=== PATIENT | female | born 1955 | race Caucasian/White ===

== ENCOUNTER 2018-04-30 18:36 | Inpatient (IN) | payer BC ==
[2018-04-30 20:24] LABS: ADD MAN DIFF? NO
[2018-04-30] MEDS: ONDANSETRON 4 MG INJ IV (20:25)
[2018-04-30] MEDS: SOD CHLORIDE 0.9% 500 ML IV (20:34)
[2018-04-30 20:41] LABS: INR 1.52; PROTIME 18.6 Sec (11.9-14.9); PT RATIO 1.5
[2018-04-30 20:44] LABS: ALANINE AMINOTRANSFERASE 66 IU/L (13-69); ALBUMIN 2.9 g/dl (3.3-4.9); ALBUMIN/GLOBULIN RATIO 0.51; ALKALINE PHOSPHATASE 315 IU/L (42-121); ANION GAP 15 (8-16); ASPARTATE AMINO TRANSFERASE 217 IU/L (15-46); BILIRUBIN,INDIRECT 2.7 mg/dl (0-1.1); BLOOD UREA NITROGEN 16 mg/dl (7-20); CALCIUM 8.4 mg/dl (8.4-10.2); CARBON DIOXIDE 25 mmol/L (21-31); CHLORIDE 97 mmol/L (97-110); CREATININE 1.29 mg/dl (0.44-1.00); GLUCOSE 113 mg/dl (70-220); LIPASE 94 U/L (23-300); POTASSIUM 3.5 mmol/L (3.5-5.1); SODIUM 133 mmol/L (135-144); TOTAL PROTEIN 8.5 g/dl (6.1-8.1)
[2018-04-30 20:52] LABS: ADD UMIC YES; UR ASCORBIC ACID NEGATIVE (NEGATIVE); UR BACTERIA MANY /HPF (NONE SEEN); UR BILIRUBIN (Dip) 2+ mg/dL (NEGATIVE); UR BLOOD (Dip) 1+ mg/dL (NEGATIVE); UR CLARITY CLOUDY (CLEAR); UR COLOR AMBER (YELLOW); UR GLUCOSE (Dip) 1+ mg/dL (NEGATIVE); UR KETONES (Dip) NEGATIVE (NEGATIVE); UR LEUKOCYTE ESTERASE (Dip) NEGATIVE Leu/ul (NEGATIVE); UR MUCUS FEW /HPF (NONE SEEN); UR NITRITE (Dip) NEGATIVE (NEGATIVE); UR RBC 2 /HPF (0-5); UR SPECIFIC GRAVITY (Dip) 1.014 (1.003-1.030); UR SQUAMOUS EPITHELIAL CELL MANY /HPF (FEW); UR TOTAL PROTEIN (Dip) NEGATIVE (NEGATIVE); UR UROBILINOGEN (Dip) 2+ mg/dL (NEGATIVE); UR WBC 2 /HPF (0-5)
[2018-04-30 21:07] LABS: BASOPHIL # 0.1 10^3/ul (0.0-0.1); BASOPHILS % 0.6 % (0.0-2.0); EOSINOPHILS # 0.1 10^3/ul (0.0-0.5); EOSINOPHILS % 0.9 % (0.0-7.0); HEMATOCRIT 32.9 % (37.0-47.0); HEMOGLOBIN 12.2 g/dl (12.0-16.0); LYMPHOCYTES # 1.7 10^3/ul (0.8-2.9); LYMPHOCYTES % 11.5 % (15.0-51.0); MEAN CORPUSCULAR HEMOGLOBIN 35.1 pg (29.0-33.0); MEAN CORPUSCULAR HGB CONC 37.1 g/dl (32.0-37.0); MEAN CORPUSCULAR VOLUME 94.5 fl (82.0-101.0); MEAN PLATELET VOLUME 9.3 fl (7.4-10.4); MONOCYTE # 1.2 10^3/ul (0.3-0.9); MONOCYTES % 7.7 % (0.0-11.0); NEUTROPHIL # 11.6 10^3/ul (1.6-7.5); NEUTROPHILS % 77.5 % (39.0-77.0); NUCLEATED RED BLOOD CELLS # 0.1 10^3/ul (0.0-0.0); NUCLEATED RED BLOOD CELLS% 0.5 /100WBC (0.0-0.0); PLATELET COUNT 178 10^3/UL (140-415); RED BLOOD COUNT 3.48 10^6/ul (4.20-5.40); RED CELL DISTRIBUTION WIDTH 21.2 % (11.5-14.5)
[2018-04-30 21:09] LABS: UR NONSQUAMOUS EPITHELIAL CELL 1 /HPF (NONE SEEN)
[2018-04-30] MEDS ORDERED: NACL 0.9% 3 ML SYG IV (22:30)
[2018-04-30] MEDS ORDERED: ACETAMINOPHEN 325 MG TAB PO ×2 (22:30)
[2018-04-30] MEDS ORDERED: ONDANSETRON 4 MG INJ IV (22:30)
[2018-04-30] MEDS: metroNIDAZOLE 500 MG/NS (PMX) 100 ML IVPB (22:41)
[2018-04-30] MEDS: CEFTRIAXONE 1 GM INJ IM (22:41)
[2018-04-30 23:20] LABS: HAAIG REFLEX REFLEX FILED
[2018-04-30 23:22] LABS: RETICULOCYTE COUNT # 0.164 X10^6 (0.020-0.110); RETICULOCYTE COUNT % 5.3 % (0.5-1.5)
[2018-04-30 23:44] LABS: LACTATE DEHYDROGENASE 546 IU/L (313-618)
[2018-04-30 23:54] LABS: ETHANOL < 10.0 mg/dl
[2018-05-01] MEDS: ALBUMIN HUMAN 25% 100 ML IV ×3 (00:09→07:14)
[2018-05-01 00:15] LABS: HEPATITIS B SURFACE ANTIGEN NEGATIVE (NEGATIVE)
[2018-05-01 00:33] LABS: HEPATITIS B SURFACE ANTIBODY NEGATIVE (NEGATIVE)
[2018-05-01 00:33] LABS: HEPATITIS B CORE ANTIBODY NEGATIVE (NEGATIVE); HEPATITIS C VIRAL ANTIBODY NEGATIVE (NEGATIVE)
[2018-05-01 00:58] LABS: LACTIC ACID 2.6 mmol/L (0.5-2.0)
[2018-05-01] MEDS: FUROSEMIDE 40 MG INJ IV (03:00)
[2018-05-01 03:07] LABS: LACTIC ACID 1.4 mmol/L (0.5-2.0)
[2018-05-01 05:58] LABS: ADD MAN DIFF? NO
[2018-05-01 06:31] LABS: LACTIC ACID 1.4 mmol/L (0.5-2.0)
[2018-05-01 06:47] LABS: ALANINE AMINOTRANSFERASE 60 IU/L (13-69); ALBUMIN 2.5 g/dl (3.3-4.9); ALBUMIN/GLOBULIN RATIO 0.54; ALKALINE PHOSPHATASE 226 IU/L (42-121); ANION GAP 15 (8-16); ASPARTATE AMINO TRANSFERASE 153 IU/L (15-46); BILIRUBIN,INDIRECT 3.4 mg/dl (0-1.1); BILIRUBIN,TOTAL 16.1 mg/dl (0.2-1.3); BLOOD UREA NITROGEN 18 mg/dl (7-20); CALCIUM 8.3 mg/dl (8.4-10.2); CARBON DIOXIDE 25 mmol/L (21-31); CHLORIDE 99 mmol/L (97-110); CREATININE 1.26 mg/dl (0.44-1.00); GLUCOSE 76 mg/dl (70-220); HDL CHOLESTEROL 7 mg/dl (35-98); MAGNESIUM 1.8 mg/dl (1.7-2.5); POTASSIUM 3.4 mmol/L (3.5-5.1); SODIUM 136 mmol/L (135-144); TOTAL PROTEIN 7.1 g/dl (6.1-8.1); TRIGLYCERIDES 107 mg/dl (0-149)
[2018-05-01 07:09] LABS: CHOLESTEROL < 50 mg/dl (100-200)
[2018-05-01 07:23] LABS: CARCINOEMBRYONIC ANTIGEN 7.3 ng/ml (0.0-5.0)
[2018-05-01] MEDS: PANTOPRAZOLE 40 MG INJ IV ×2 (07:30→18:51)
[2018-05-01] MEDS: PIPER-TAZO 2.25 GM (PMX) 50 ML IVPB ×4 (07:43→23:51)
[2018-05-01 08:28] LABS: WHITE BLOOD COUNT 11.9 10^3/ul (4.8-10.8)
[2018-05-01 08:28] LABS: ABNORMAL IP MESSAGE 1; BASOPHIL # 0.1 10^3/ul (0.0-0.1); BASOPHILS % 0.6 % (0.0-2.0); EOSINOPHILS # 0.2 10^3/ul (0.0-0.5); EOSINOPHILS % 1.8 % (0.0-7.0); HEMATOCRIT 26.1 % (37.0-47.0); HEMOGLOBIN 9.6 g/dl (12.0-16.0); LYMPHOCYTES # 1.6 10^3/ul (0.8-2.9); LYMPHOCYTES % 13.6 % (15.0-51.0); MEAN CORPUSCULAR HEMOGLOBIN 34.8 pg (29.0-33.0); MEAN CORPUSCULAR HGB CONC 36.8 g/dl (32.0-37.0); MEAN CORPUSCULAR VOLUME 94.6 fl (82.0-101.0); MEAN PLATELET VOLUME 9.6 fl (7.4-10.4); MONOCYTE # 0.9 10^3/ul (0.3-0.9); MONOCYTES % 7.5 % (0.0-11.0); NEUTROPHILS % 75.5 % (39.0-77.0); NUCLEATED RED BLOOD CELLS% 0.3 /100WBC (0.0-0.0); RED BLOOD COUNT 2.76 10^6/ul (4.20-5.40); RED CELL DISTRIBUTION WIDTH 20.9 % (11.5-14.5)
[2018-05-01 08:30] LABS: PLATELET COUNT 130 10^3/UL (140-415); POSITIVE DIFF @See below
[2018-05-01 08:47] LABS: ALPHA FETOPROTEIN 3.27 IU/L (0.00-7.21)
[2018-05-01] MEDS: HYDROmorphONE 2 MG TAB PO ×4 (09:51→23:57)
[2018-05-01] MEDS: predniSOLONE (3 MG/ML) CUP PO (09:54)
[2018-05-01 17:13] LABS: LACTIC ACID 2.7 mmol/L (0.5-2.0)
[2018-05-01 18:16] LABS: AMPHETAMINE/METHAMPHETAMINE NEGATIVE (NEGATIVE)
[2018-05-01 18:17] LABS: BARBITURATES NEGATIVE (NEGATIVE); BENZODIAZEPINES NEGATIVE (NEGATIVE); CANNABINOIDS NEGATIVE (NEGATIVE); COCAINE NEGATIVE (NEGATIVE); OPIATES NEGATIVE (NEGATIVE)
[2018-05-01] MEDS: ONDANSETRON 4 MG INJ IV ×2 (18:51→23:56)
[2018-05-01 21:49] LABS: LACTIC ACID 2.2 mmol/L (0.5-2.0)
[2018-05-02] MEDS: PANTOPRAZOLE 40 MG INJ IV ×2 (05:50→17:51)
[2018-05-02 06:03] LABS: PROTIME 21.3 Sec (11.9-14.9); PT RATIO 1.7
[2018-05-02 06:13] LABS: LACTIC ACID 1.7 mmol/L (0.5-2.0)
[2018-05-02 06:21] LABS: ALANINE AMINOTRANSFERASE 51 IU/L (13-69); ALBUMIN 3.2 g/dl (3.3-4.9); ALBUMIN/GLOBULIN RATIO 0.72; ALKALINE PHOSPHATASE 198 IU/L (42-121); ANION GAP 16 (8-16); ASPARTATE AMINO TRANSFERASE 132 IU/L (15-46); BILIRUBIN,INDIRECT 3.4 mg/dl (0-1.1); BILIRUBIN,TOTAL 18.7 mg/dl (0.2-1.3); BLOOD UREA NITROGEN 20 mg/dl (7-20); CALCIUM 8.7 mg/dl (8.4-10.2); CARBON DIOXIDE 23 mmol/L (21-31); CHLORIDE 100 mmol/L (97-110); GLUCOSE 131 mg/dl (70-220); POTASSIUM 3.7 mmol/L (3.5-5.1); SODIUM 135 mmol/L (135-144); TOTAL PROTEIN 7.6 g/dl (6.1-8.1)
[2018-05-02] MEDS: PIPER-TAZO 2.25 GM (PMX) 50 ML IVPB ×3 (06:26→17:55)
[2018-05-02] MEDS: predniSOLONE (3 MG/ML) CUP PO (08:25)
[2018-05-02] MEDS: ONDANSETRON 4 MG INJ IV (08:25)
[2018-05-02] MEDS: HYDROmorphONE 2 MG TAB PO ×2 (10:50→22:35)
[2018-05-02] MEDS: LIDOCAINE 1% (MPF) 5 ML VIAL (15:33)
[2018-05-02 16:08] LABS: FLD PMN% 21.6 %; FLD RBC 2000 /uL; FLD WBC 283 /cmm
[2018-05-02 16:29] LABS: FLUID AMYLASE < 30 U/L; FLUID GLUCOSE 129 mg/dl; FLUID TOTAL PROTEIN 2.1 g/dl; FLUID TYPE PARACENTESIS FLUID
[2018-05-02 16:30] LABS: FLUID LD 171 U/L; FLUID TYPE PARACENTESIS FLUID
[2018-05-02 17:06] LABS: FLD CLARITY HAZY; FLD COLOR YELLOW
[2018-05-02 17:06] LABS: FLD TYPE PARACENTHESIS
[2018-05-02 17:07] LABS: FLD MN% 78.4 %
[2018-05-02 17:51] LABS: ALPHA 1 ANTITRYPSIN 157 mg/dL (83-199); HAPTOGLOBIN 69 mg/dL (43-212)
[2018-05-03 05:39] LABS: ADD MAN DIFF? NO
[2018-05-03] MEDS: PIPER-TAZO 2.25 GM (PMX) 50 ML IVPB ×4 (05:48→17:24)
[2018-05-03] MEDS: PANTOPRAZOLE 40 MG INJ IV ×2 (05:48→17:24)
[2018-05-03 05:50] LABS: BASOPHILS % 0.1 % (0.0-2.0); HEMATOCRIT 25.6 % (37.0-47.0); HEMOGLOBIN 9.2 g/dl (12.0-16.0); LYMPHOCYTES # 1.2 10^3/ul (0.8-2.9); LYMPHOCYTES % 7.2 % (15.0-51.0); MEAN CORPUSCULAR HEMOGLOBIN 34.7 pg (29.0-33.0); MEAN CORPUSCULAR HGB CONC 35.9 g/dl (32.0-37.0); MEAN CORPUSCULAR VOLUME 96.6 fl (82.0-101.0); MEAN PLATELET VOLUME 9.2 fl (7.4-10.4); MONOCYTES % 5.7 % (0.0-11.0); NEUTROPHIL # 14.6 10^3/ul (1.6-7.5); NEUTROPHILS % 86.3 % (39.0-77.0); NUCLEATED RED BLOOD CELLS # 0.1 10^3/ul (0.0-0.0); NUCLEATED RED BLOOD CELLS% 0.4 /100WBC (0.0-0.0); PLATELET COUNT 138 10^3/UL (140-415); RED BLOOD COUNT 2.65 10^6/ul (4.20-5.40); RED CELL DISTRIBUTION WIDTH 19.9 % (11.5-14.5)
[2018-05-03 05:50] LABS: WHITE BLOOD COUNT 16.9 10^3/ul (4.8-10.8)
[2018-05-03 06:03] LABS: ALANINE AMINOTRANSFERASE 52 IU/L (13-69); ALBUMIN/GLOBULIN RATIO 0.66; ALKALINE PHOSPHATASE 183 IU/L (42-121); ANION GAP 14 (8-16); ASPARTATE AMINO TRANSFERASE 123 IU/L (15-46); BILIRUBIN,INDIRECT 3.2 mg/dl (0-1.1); BILIRUBIN,TOTAL 15.4 mg/dl (0.2-1.3); BLOOD UREA NITROGEN 22 mg/dl (7-20); CALCIUM 8.9 mg/dl (8.4-10.2); CARBON DIOXIDE 25 mmol/L (21-31); CHLORIDE 99 mmol/L (97-110); CREATININE 1.73 mg/dl (0.44-1.00); GLUCOSE 118 mg/dl (70-220); POTASSIUM 3.6 mmol/L (3.5-5.1); SODIUM 134 mmol/L (135-144); TOTAL PROTEIN 7.5 g/dl (6.1-8.1)
[2018-05-03 06:08] LABS: PROTIME 21.3 Sec (11.9-14.9); PT RATIO 1.7
[2018-05-03 06:09] LABS: MAGNESIUM 2.1 mg/dl (1.7-2.5)
[2018-05-03] MEDS: predniSOLONE (3 MG/ML) CUP PO (08:22)
[2018-05-03] MEDS: HYDROmorphONE 2 MG TAB PO ×3 (08:22→21:59)
[2018-05-03] MEDS ORDERED: INFLUENZA VIRUS VACCINE 0.5 ML (DISPENSING) IM* (09:00)
[2018-05-03 12:00] LABS: TYPE AND SCREEN 1 1
[2018-05-03 13:54] LABS: ADD UMIC NO; UR ASCORBIC ACID NEGATIVE (NEGATIVE); UR BILIRUBIN (Dip) 2+ mg/dL (NEGATIVE); UR BLOOD (Dip) NEGATIVE (NEGATIVE); UR CLARITY SLIGHTLY CLOUDY (CLEAR); UR COLOR AMBER (YELLOW); UR GLUCOSE (Dip) NEGATIVE (NEGATIVE); UR KETONES (Dip) NEGATIVE (NEGATIVE); UR LEUKOCYTE ESTERASE (Dip) NEGATIVE Leu/ul (NEGATIVE); UR NITRITE (Dip) NEGATIVE (NEGATIVE); UR RBC 0 /HPF (0-5); UR SPECIFIC GRAVITY (Dip) 1.017 (1.003-1.030); UR SQUAMOUS EPITHELIAL CELL FEW /HPF (FEW); UR TOTAL PROTEIN (Dip) NEGATIVE (NEGATIVE); UR UROBILINOGEN (Dip) 2+ mg/dL (NEGATIVE); UR WBC 3 /HPF (0-5)
[2018-05-03] MEDS: PROPOFOL 20 ML (15:39)
[2018-05-03 16:26] LABS: SODIUM,URINE RANDOM < 13 mmol/L (30-90)
[2018-05-03] MEDS: ALBUMIN HUMAN 25% 100 ML IV ×4 (18:08→22:39)
[2018-05-03] MEDS: AMIODARONE 200 MG TAB PO (20:23)
[2018-05-03] MEDS ORDERED: METOPROLOL 5 MG INJ IV (21:00)
[2018-05-03] MEDS: METOPROLOL 25 MG TAB PO (21:00)
[2018-05-03] MEDS ORDERED: DIGOXIN 500 MCG INJ IV (21:00)
[2018-05-03] MEDS: DOCUSATE SODIUM 100 MG CAP PO (21:59)
[2018-05-04] MEDS: PIPER-TAZO 2.25 GM (PMX) 50 ML IVPB ×4 (00:30→17:43)
[2018-05-04] MEDS: ALBUMIN HUMAN 25% 100 ML IV (01:30)
[2018-05-04] MEDS: PANTOPRAZOLE 40 MG INJ IV ×2 (05:15→17:43)
[2018-05-04 05:43] LABS: ADD MAN DIFF? NO
[2018-05-04 05:48] LABS: BASOPHILS % 0.1 % (0.0-2.0); HEMATOCRIT 21.5 % (37.0-47.0); HEMOGLOBIN 7.6 g/dl (12.0-16.0); LYMPHOCYTES # 1.2 10^3/ul (0.8-2.9); LYMPHOCYTES % 8.2 % (15.0-51.0); MEAN CORPUSCULAR HEMOGLOBIN 34.7 pg (29.0-33.0); MEAN CORPUSCULAR HGB CONC 35.3 g/dl (32.0-37.0); MEAN CORPUSCULAR VOLUME 98.2 fl (82.0-101.0); MEAN PLATELET VOLUME 9.5 fl (7.4-10.4); MONOCYTE # 0.9 10^3/ul (0.3-0.9); MONOCYTES % 6.2 % (0.0-11.0); NEUTROPHIL # 12.6 10^3/ul (1.6-7.5); NEUTROPHILS % 84.6 % (39.0-77.0); NUCLEATED RED BLOOD CELLS # 0.1 10^3/ul (0.0-0.0); NUCLEATED RED BLOOD CELLS% 0.4 /100WBC (0.0-0.0); PLATELET COUNT 121 10^3/UL (140-415); RED BLOOD COUNT 2.19 10^6/ul (4.20-5.40); RED CELL DISTRIBUTION WIDTH 19.9 % (11.5-14.5)
[2018-05-04 05:48] LABS: WHITE BLOOD COUNT 14.9 10^3/ul (4.8-10.8)
[2018-05-04 06:08] LABS: PHOSPHORUS 3.3 mg/dl (2.5-4.9)
[2018-05-04 06:08] LABS: MAGNESIUM 2.1 mg/dl (1.7-2.5)
[2018-05-04 06:13] LABS: ALANINE AMINOTRANSFERASE 42 IU/L (13-69); ALBUMIN 4.3 g/dl (3.3-4.9); ALBUMIN/GLOBULIN RATIO 1.04; ALKALINE PHOSPHATASE 126 IU/L (42-121); ANION GAP 19 (8-16); ASPARTATE AMINO TRANSFERASE 96 IU/L (15-46); BILIRUBIN,INDIRECT 4.5 mg/dl (0-1.1); BILIRUBIN,TOTAL 12.2 mg/dl (0.2-1.3); BLOOD UREA NITROGEN 24 mg/dl (7-20); CALCIUM 9.4 mg/dl (8.4-10.2); CARBON DIOXIDE 24 mmol/L (21-31); CHLORIDE 96 mmol/L (97-110); CREATININE 1.57 mg/dl (0.44-1.00); GLUCOSE 105 mg/dl (70-220); INR 1.54; POTASSIUM 3.1 mmol/L (3.5-5.1); PROTIME 18.8 Sec (11.9-14.9); PT RATIO 1.5; SODIUM 136 mmol/L (135-144); TOTAL PROTEIN 8.4 g/dl (6.1-8.1)
[2018-05-04] MEDS: HYDROmorphONE 2 MG TAB PO ×3 (06:44→16:55)
[2018-05-04] MEDS: POTASSIUM CHLORIDE (SR) 20 MEQ TAB PO (07:03)
[2018-05-04] MEDS: predniSOLONE (3 MG/ML) CUP PO (09:31)
[2018-05-04] MEDS: ASPIRIN 81 MG TAB PO (09:31)
[2018-05-04] MEDS: METOPROLOL 25 MG TAB PO ×2 (09:33→21:29)
[2018-05-04] MEDS: AMIODARONE 200 MG TAB PO ×3 (09:35→21:28)
[2018-05-04] MEDS ORDERED: POTASSIUM CHLORIDE 20 MEQ POWDER FOR ORAL SOLN PO (10:30)
[2018-05-04 10:48] LABS: IRON 128 ug/dl (35-150)
[2018-05-04 10:57] LABS: % IRON SATURATION 71 % SAT (22-52); TOTAL IRON BINDING CAPACITY 181 ug/dl (241-421)
[2018-05-04 13:02] LABS: ANA SCREEN NEGATIVE (NEGATIVE); MITOCHONDRIAL TB NEGATIVE (NEGATIVE); SMOOTH MUSCLE AB SCREEN NEGATIVE (NEGATIVE)
[2018-05-04] MEDS: ONDANSETRON 4 MG INJ IV (13:19)
[2018-05-04] MEDS: SUCRALFATE (100 MG/ML) 10ML CUP PO ×2 (16:54→21:28)
[2018-05-04] MEDS: METOCLOPRAMIDE 10 MG TAB PO ×2 (16:57→21:29)
[2018-05-04 17:37] LABS: CREATININE, RANDOM URINE 90 mg/dL (20-275); MICROALBUMIN 0.5 mg/dL; MICROALBUMIN/CREATININE RATIO 6 (<30)
[2018-05-04] MEDS: BISACODYL (EC) 5 MG TAB PO (21:32)
[2018-05-05] MEDS: PIPER-TAZO 2.25 GM (PMX) 50 ML IVPB ×5 (00:20→23:02)
[2018-05-05] MEDS: METOCLOPRAMIDE 10 MG TAB PO ×3 (05:00→21:02)
[2018-05-05] MEDS: PANTOPRAZOLE 40 MG INJ IV ×2 (05:00→17:29)
[2018-05-05] MEDS: DOCUSATE SODIUM 100 MG CAP PO (05:01)
[2018-05-05 06:11] LABS: ADD MAN DIFF? NO
[2018-05-05 06:16] LABS: WHITE BLOOD COUNT 14.5 10^3/ul (4.8-10.8)
[2018-05-05 06:17] LABS: BASOPHILS % 0.1 % (0.0-2.0); HEMOGLOBIN 7.8 g/dl (12.0-16.0); LYMPHOCYTES # 0.9 10^3/ul (0.8-2.9); LYMPHOCYTES % 6.2 % (15.0-51.0); MEAN CORPUSCULAR HEMOGLOBIN 35.3 pg (29.0-33.0); MEAN CORPUSCULAR HGB CONC 35.5 g/dl (32.0-37.0); MEAN CORPUSCULAR VOLUME 99.5 fl (82.0-101.0); MEAN PLATELET VOLUME 9.3 fl (7.4-10.4); MONOCYTE # 0.8 10^3/ul (0.3-0.9); MONOCYTES % 5.7 % (0.0-11.0); NEUTROPHIL # 12.6 10^3/ul (1.6-7.5); NEUTROPHILS % 87.2 % (39.0-77.0); NUCLEATED RED BLOOD CELLS # 0.1 10^3/ul (0.0-0.0); NUCLEATED RED BLOOD CELLS% 0.3 /100WBC (0.0-0.0); PLATELET COUNT 114 10^3/UL (140-415); RED BLOOD COUNT 2.21 10^6/ul (4.20-5.40); RED CELL DISTRIBUTION WIDTH 19.7 % (11.5-14.5)
[2018-05-05] MEDS: SUCRALFATE (100 MG/ML) 10ML CUP PO ×4 (06:22→20:51)
[2018-05-05 06:25] LABS: INR 1.73; PROTIME 20.6 Sec (11.9-14.9); PT RATIO 1.6
[2018-05-05 06:34] LABS: ALANINE AMINOTRANSFERASE 57 IU/L (13-69); ALBUMIN 3.4 g/dl (3.3-4.9); ALKALINE PHOSPHATASE 129 IU/L (42-121); ANION GAP 19 (8-16); ASPARTATE AMINO TRANSFERASE 105 IU/L (15-46); BILIRUBIN,INDIRECT 4.3 mg/dl (0-1.1); BILIRUBIN,TOTAL 11.8 mg/dl (0.2-1.3); BLOOD UREA NITROGEN 25 mg/dl (7-20); CALCIUM 9.7 mg/dl (8.4-10.2); CARBON DIOXIDE 26 mmol/L (21-31); CHLORIDE 94 mmol/L (97-110); CREATININE 1.59 mg/dl (0.44-1.00); GLUCOSE 120 mg/dl (70-220); POTASSIUM 4.1 mmol/L (3.5-5.1); SODIUM 135 mmol/L (135-144); TOTAL PROTEIN 7.6 g/dl (6.1-8.1)
[2018-05-05 06:49] LABS: PHOSPHORUS 2.6 mg/dl (2.5-4.9)
[2018-05-05] MEDS: ASPIRIN 81 MG TAB PO (09:05)
[2018-05-05] MEDS: HYDROmorphONE 2 MG TAB PO (09:05)
[2018-05-05] MEDS: METOPROLOL 25 MG TAB PO ×2 (09:06→20:54)
[2018-05-05] MEDS: AMIODARONE 200 MG TAB PO ×3 (09:06→20:53)
[2018-05-05] MEDS: predniSOLONE (3 MG/ML) CUP PO (09:07)
[2018-05-05] MEDS: CEFAZOLIN 2 GM/50 ML (PMX) 50 ML IVPB (15:30)
[2018-05-05] MEDS: LACTATED RINGER'S 1,000 ML IV ×2 (16:23→23:02)
[2018-05-06 05:39] LABS: ADD MAN DIFF? NO
[2018-05-06 05:40] LABS: BASOPHILS % 0.1 % (0.0-2.0); HEMATOCRIT 21.5 % (37.0-47.0); HEMOGLOBIN 7.9 g/dl (12.0-16.0); LYMPHOCYTES # 1.2 10^3/ul (0.8-2.9); LYMPHOCYTES % 7.9 % (15.0-51.0); MEAN CORPUSCULAR HEMOGLOBIN 35.3 pg (29.0-33.0); MEAN CORPUSCULAR HGB CONC 36.7 g/dl (32.0-37.0); MEAN PLATELET VOLUME 9.2 fl (7.4-10.4); MONOCYTE # 1.1 10^3/ul (0.3-0.9); MONOCYTES % 7.1 % (0.0-11.0); NEUTROPHIL # 12.7 10^3/ul (1.6-7.5); NEUTROPHILS % 84.2 % (39.0-77.0); NUCLEATED RED BLOOD CELLS # 0.1 10^3/ul (0.0-0.0); NUCLEATED RED BLOOD CELLS% 0.5 /100WBC (0.0-0.0); PLATELET COUNT 104 10^3/UL (140-415); RED BLOOD COUNT 2.24 10^6/ul (4.20-5.40); RED CELL DISTRIBUTION WIDTH 18.9 % (11.5-14.5)
[2018-05-06 05:40] LABS: WHITE BLOOD COUNT 15.1 10^3/ul (4.8-10.8)
[2018-05-06] MEDS: PIPER-TAZO 2.25 GM (PMX) 50 ML IVPB ×3 (05:55→18:09)
[2018-05-06] MEDS: METOCLOPRAMIDE 10 MG TAB PO ×3 (05:55→21:04)
[2018-05-06] MEDS: LACTATED RINGER'S 1,000 ML IV ×3 (05:56→22:15)
[2018-05-06 06:05] LABS: ALANINE AMINOTRANSFERASE 68 IU/L (13-69); ALBUMIN 3.1 g/dl (3.3-4.9); ALBUMIN/GLOBULIN RATIO 0.77; ALKALINE PHOSPHATASE 179 IU/L (42-121); ANION GAP 15 (8-16); ASPARTATE AMINO TRANSFERASE 102 IU/L (15-46); BILIRUBIN,INDIRECT 3.7 mg/dl (0-1.1); BILIRUBIN,TOTAL 9.7 mg/dl (0.2-1.3); BLOOD UREA NITROGEN 24 mg/dl (7-20); CALCIUM 9.6 mg/dl (8.4-10.2); CARBON DIOXIDE 26 mmol/L (21-31); CHLORIDE 97 mmol/L (97-110); GLUCOSE 117 mg/dl (70-220); POTASSIUM 3.4 mmol/L (3.5-5.1); SODIUM 135 mmol/L (135-144); TOTAL PROTEIN 7.1 g/dl (6.1-8.1)
[2018-05-06 06:08] LABS: MAGNESIUM 1.9 mg/dl (1.7-2.5)
[2018-05-06 06:08] LABS: PHOSPHORUS 1.7 mg/dl (2.5-4.9)
[2018-05-06 06:16] LABS: PROTIME 21.3 Sec (11.9-14.9); PT RATIO 1.7
[2018-05-06] MEDS: PANTOPRAZOLE 40 MG INJ IV ×2 (06:47→18:20)
[2018-05-06] MEDS: SUCRALFATE (100 MG/ML) 10ML CUP PO ×4 (06:50→20:57)
[2018-05-06] MEDS ORDERED: CEFAZOLIN 2 GM/50 ML (PMX) 50 ML IVPB (08:00)
[2018-05-06] MEDS: ASPIRIN 81 MG TAB PO (14:21)
[2018-05-06] MEDS: METOPROLOL 25 MG TAB PO ×2 (14:22→20:58)
[2018-05-06] MEDS: predniSOLONE (3 MG/ML) CUP PO (14:23)
[2018-05-06] MEDS: AMIODARONE 200 MG TAB PO ×3 (14:23→20:58)
[2018-05-06] MEDS: LACTULOSE 30ML CUP PO ×2 (18:09→21:03)
[2018-05-07] MEDS: PIPER-TAZO 2.25 GM (PMX) 50 ML IVPB ×4 (00:10→17:41)
[2018-05-07] MEDS: LACTATED RINGER'S 1,000 ML IV ×4 (00:11→22:06)
[2018-05-07 05:45] LABS: ADD MAN DIFF? NO
[2018-05-07 05:53] LABS: BASOPHILS % 0.1 % (0.0-2.0); HEMATOCRIT 20.8 % (37.0-47.0); HEMOGLOBIN 7.6 g/dl (12.0-16.0); LYMPHOCYTES # 0.8 10^3/ul (0.8-2.9); LYMPHOCYTES % 7.1 % (15.0-51.0); MEAN CORPUSCULAR HGB CONC 36.5 g/dl (32.0-37.0); MEAN CORPUSCULAR VOLUME 95.9 fl (82.0-101.0); MEAN PLATELET VOLUME 9.4 fl (7.4-10.4); MONOCYTE # 0.8 10^3/ul (0.3-0.9); MONOCYTES % 7.1 % (0.0-11.0); NEUTROPHIL # 9.4 10^3/ul (1.6-7.5); NEUTROPHILS % 85.1 % (39.0-77.0); NUCLEATED RED BLOOD CELLS # 0.1 10^3/ul (0.0-0.0); NUCLEATED RED BLOOD CELLS% 0.7 /100WBC (0.0-0.0); PLATELET COUNT 119 10^3/UL (140-415); RED BLOOD COUNT 2.17 10^6/ul (4.20-5.40); RED CELL DISTRIBUTION WIDTH 18.4 % (11.5-14.5)
[2018-05-07 05:53] LABS: WHITE BLOOD COUNT 11.1 10^3/ul (4.8-10.8)
[2018-05-07] MEDS: LACTULOSE 30ML CUP PO ×3 (06:02→20:21)
[2018-05-07] MEDS: PANTOPRAZOLE 40 MG INJ IV ×2 (06:02→17:38)
[2018-05-07] MEDS: SUCRALFATE (100 MG/ML) 10ML CUP PO ×4 (06:02→21:00)
[2018-05-07] MEDS: METOCLOPRAMIDE 10 MG TAB PO ×3 (06:02→20:22)
[2018-05-07 06:12] LABS: INR 1.85; PROTIME 21.8 Sec (11.9-14.9); PT RATIO 1.7
[2018-05-07 06:18] LABS: AMMONIA 38 umol/l (9-30)
[2018-05-07 06:22] LABS: PHOSPHORUS 1.3 mg/dl (2.5-4.9)
[2018-05-07 06:22] LABS: MAGNESIUM 1.7 mg/dl (1.7-2.5)
[2018-05-07 06:25] LABS: ALANINE AMINOTRANSFERASE 67 IU/L (13-69); ALBUMIN/GLOBULIN RATIO 0.88; ALKALINE PHOSPHATASE 121 IU/L (42-121); ANION GAP 11 (8-16); ASPARTATE AMINO TRANSFERASE 101 IU/L (15-46); BILIRUBIN,INDIRECT 3.5 mg/dl (0-1.1); BILIRUBIN,TOTAL 8.4 mg/dl (0.2-1.3); BLOOD UREA NITROGEN 21 mg/dl (7-20); CALCIUM 9.3 mg/dl (8.4-10.2); CARBON DIOXIDE 26 mmol/L (21-31); CHLORIDE 104 mmol/L (97-110); CREATININE 1.02 mg/dl (0.44-1.00); GLUCOSE 131 mg/dl (70-220); POTASSIUM 3.2 mmol/L (3.5-5.1); SODIUM 138 mmol/L (135-144); TOTAL PROTEIN 6.4 g/dl (6.1-8.1)
[2018-05-07] MEDS: POTASSIUM CHLORIDE (SR) 20 MEQ TAB PO (08:02)
[2018-05-07] MEDS ORDERED: POTASSIUM CHLORIDE (SR) 20 MEQ TAB PO (09:00)
[2018-05-07] MEDS: NEUTRA-PHOS 250 MG PACKET PO (09:19)
[2018-05-07] MEDS: ASPIRIN 81 MG TAB PO (09:20)
[2018-05-07] MEDS: METOPROLOL 25 MG TAB PO ×2 (09:21→20:22)
[2018-05-07] MEDS: AMIODARONE 200 MG TAB PO (09:21)
[2018-05-07] MEDS: predniSOLONE (3 MG/ML) CUP PO (09:29)
[2018-05-07] MEDS: HYDROmorphONE 2 MG TAB PO ×2 (09:41→20:24)
[2018-05-07] MEDS: MAGNESIUM SULFATE 1 GM/D5W 100 ML IVPB (09:49)
[2018-05-07 11:15] LABS: HEMATOCRIT 21.9 % (37.0-47.0); HEMOGLOBIN 8.3 g/dl (12.0-16.0)
[2018-05-07] MEDS: POTASSIUM PHOSPHATE 40 MEQ in SOD CHLORIDE 0.9% 250 ML IVPB (11:25)
[2018-05-08] MEDS: HYDROmorphONE 2 MG TAB PO (00:55)
[2018-05-08] MEDS: PIPER-TAZO 2.25 GM (PMX) 50 ML IVPB ×3 (00:55→11:25)
[2018-05-08] MEDS: PANTOPRAZOLE 40 MG INJ IV ×2 (05:22→17:43)
[2018-05-08] MEDS: LACTULOSE 30ML CUP PO ×2 (05:23→14:17)
[2018-05-08] MEDS: METOCLOPRAMIDE 10 MG TAB PO ×2 (05:23→14:17)
[2018-05-08 05:34] LABS: ADD MAN DIFF? NO
[2018-05-08 05:47] LABS: BASOPHILS % 0.1 % (0.0-2.0); EOSINOPHILS % 0.1 % (0.0-7.0); HEMATOCRIT 22.3 % (37.0-47.0); HEMOGLOBIN 8.1 g/dl (12.0-16.0); LYMPHOCYTES # 1.3 10^3/ul (0.8-2.9); LYMPHOCYTES % 6.7 % (15.0-51.0); MEAN CORPUSCULAR HEMOGLOBIN 35.1 pg (29.0-33.0); MEAN CORPUSCULAR HGB CONC 36.3 g/dl (32.0-37.0); MEAN CORPUSCULAR VOLUME 96.5 fl (82.0-101.0); MEAN PLATELET VOLUME 9.4 fl (7.4-10.4); MONOCYTE # 1.4 10^3/ul (0.3-0.9); MONOCYTES % 7.3 % (0.0-11.0); NEUTROPHIL # 16.2 10^3/ul (1.6-7.5); NEUTROPHILS % 84.4 % (39.0-77.0); NUCLEATED RED BLOOD CELLS # 0.2 10^3/ul (0.0-0.0); NUCLEATED RED BLOOD CELLS% 0.8 /100WBC (0.0-0.0); PLATELET COUNT 136 10^3/UL (140-415); RED BLOOD COUNT 2.31 10^6/ul (4.20-5.40); RED CELL DISTRIBUTION WIDTH 18.9 % (11.5-14.5)
[2018-05-08 05:47] LABS: WHITE BLOOD COUNT 19.2 10^3/ul (4.8-10.8)
[2018-05-08 05:59] LABS: INR 1.71; PROTIME 20.4 Sec (11.9-14.9); PT RATIO 1.6
[2018-05-08 06:01] LABS: PHOSPHORUS 2.6 mg/dl (2.5-4.9)
[2018-05-08 06:01] LABS: ALANINE AMINOTRANSFERASE 67 IU/L (13-69); ALBUMIN 3.1 g/dl (3.3-4.9); ALKALINE PHOSPHATASE 131 IU/L (42-121); ASPARTATE AMINO TRANSFERASE 95 IU/L (15-46); BILIRUBIN,INDIRECT 3.1 mg/dl (0-1.1); BILIRUBIN,TOTAL 7.6 mg/dl (0.2-1.3); MAGNESIUM 1.8 mg/dl (1.7-2.5); TOTAL PROTEIN 6.7 g/dl (6.1-8.1)
[2018-05-08 06:02] LABS: AMMONIA 25 umol/l (9-30)
[2018-05-08 06:07] LABS: ALANINE AMINOTRANSFERASE 76 IU/L (13-69); ALBUMIN 2.7 g/dl (3.3-4.9); ALBUMIN/GLOBULIN RATIO 0.71; ALKALINE PHOSPHATASE 133 IU/L (42-121); ANION GAP 14 (8-16); ASPARTATE AMINO TRANSFERASE 99 IU/L (15-46); BILIRUBIN,INDIRECT 3.4 mg/dl (0-1.1); BILIRUBIN,TOTAL 7.9 mg/dl (0.2-1.3); BLOOD UREA NITROGEN 18 mg/dl (7-20); CALCIUM 9.6 mg/dl (8.4-10.2); CARBON DIOXIDE 25 mmol/L (21-31); CHLORIDE 105 mmol/L (97-110); CREATININE 0.89 mg/dl (0.44-1.00); GLUCOSE 124 mg/dl (70-220); POTASSIUM 3.5 mmol/L (3.5-5.1); SODIUM 140 mmol/L (135-144); TOTAL PROTEIN 6.5 g/dl (6.1-8.1)
[2018-05-08] MEDS: SUCRALFATE (100 MG/ML) 10ML CUP PO ×3 (06:26→17:13)
[2018-05-08] MEDS: ASPIRIN 81 MG TAB PO (09:42)
[2018-05-08] MEDS: METOPROLOL 25 MG TAB PO (09:43)
[2018-05-08] MEDS: AMIODARONE 200 MG TAB PO (09:43)
[2018-05-08] MEDS: predniSOLONE (3 MG/ML) CUP PO (09:44)
== END 2018-05-08 18:10 | disposition home health service (06) | DRG 871 ==
LOC: 6WM 05-03 06:18 → E/R 18:36 → 6WM 05-01 15:16
PROC: 0W9G3ZX Drainage of Peritoneal Cavity, Percutaneous Approach, Diagnostic (ICD-10-PCS; principal; 2018-05-03 13:20)
PROC: 0DJ08ZZ Inspection of Upper Intestinal Tract, Via Natural or Artificial Opening Endoscopic (ICD-10-PCS; 2018-05-03 13:20)
PROC: 30233K1 Transfusion of Nonautologous Frozen Plasma into Peripheral Vein, Percutaneous Approach (ICD-10-PCS; 2018-05-03 13:20)
DX: A41.9 Sepsis, unspecified organism (principal); K72.00 Acute and subacute hepatic failure without coma; K80.10 Calculus of gallbladder with chronic cholecystitis without obstruction; E87.1 Hypo-osmolality and hyponatremia; D68.9 Coagulation defect, unspecified; N17.9 Acute kidney failure, unspecified; K76.6 Portal hypertension; G93.40 Encephalopathy, unspecified; K70.11 Alcoholic hepatitis with ascites; I10 Essential (primary) hypertension; K76.0 Fatty (change of) liver, not elsewhere classified; R65.20 Severe sepsis without septic shock; K29.70 Gastritis, unspecified, without bleeding; D64.9 Anemia, unspecified; I48.0 Paroxysmal atrial fibrillation; E87.6 Hypokalemia; I95.9 Hypotension, unspecified; F10.20 Alcohol dependence, uncomplicated; N85.9 Noninflammatory disorder of uterus, unspecified; E83.89 Other disorders of mineral metabolism; Z78.0 Asymptomatic menopausal state; E87.70 Fluid overload, unspecified; K70.31 Alcoholic cirrhosis of liver with ascites
CPT/HCPCS: 36415; 36430; 74176; 74181; 76705; 76830; 76856; 80053; 80061; 80076; 80307; 81001; 81003; 82042; 82043; 82103; 82105; 82140; 82150; 82378; 82728; 82945; 83010; 83036; 83540; 83605; 83615; 83690; 83735; 84100; 84155; 84157; 84300; 84443; 85014; 85018; 85025; 85045; 85610; 86038; 86255; 86304; 86376; 86704; 86706; 86709; 86803; 86850; 86900; 86901; 87040; 87070; 87086; 87102; 87116; 87338; 87340; 88104; 88305; 89051; 93005; 93306; 96374; 97110; 97116; 97162; 99291-25

== ENCOUNTER 2018-05-24 12:09 | Inpatient (IN) | payer BC ==
[2018-05-24 13:03] LABS: ADD MAN DIFF? NO
[2018-05-24 13:11] LABS: ABNORMAL IP MESSAGE 1; BASOPHILS % 0.1 % (0.0-2.0); EOSINOPHILS % 0.2 % (0.0-7.0); HEMATOCRIT 23.7 % (37.0-47.0); HEMOGLOBIN 8.5 g/dl (12.0-16.0); LYMPHOCYTES # 1.8 10^3/ul (0.8-2.9); LYMPHOCYTES % 11.8 % (15.0-51.0); MEAN CORPUSCULAR HEMOGLOBIN 35.7 pg (29.0-33.0); MEAN CORPUSCULAR HGB CONC 35.9 g/dl (32.0-37.0); MEAN CORPUSCULAR VOLUME 99.6 fl (82.0-101.0); MEAN PLATELET VOLUME 10.7 fl (7.4-10.4); MONOCYTE # 0.7 10^3/ul (0.3-0.9); MONOCYTES % 4.7 % (0.0-11.0); NEUTROPHIL # 12.8 10^3/ul (1.6-7.5); NEUTROPHILS % 82.5 % (39.0-77.0); PLATELET COUNT 70 10^3/UL (140-415); RED BLOOD COUNT 2.38 10^6/ul (4.20-5.40); RED CELL DISTRIBUTION WIDTH 19.9 % (11.5-14.5)
[2018-05-24 13:11] LABS: WHITE BLOOD COUNT 15.5 10^3/ul (4.8-10.8)
[2018-05-24 13:12] LABS: POSITIVE DIFF @See below
[2018-05-24 13:18] LABS: ADD UMIC YES; UR ASCORBIC ACID NEGATIVE (NEGATIVE); UR BACTERIA MANY /HPF (NONE SEEN); UR BILIRUBIN (Dip) 2+ mg/dL (NEGATIVE); UR BLOOD (Dip) 3+ mg/dL (NEGATIVE); UR CLARITY CLOUDY (CLEAR); UR COLOR AMBER (YELLOW); UR GLUCOSE (Dip) NEGATIVE (NEGATIVE); UR KETONES (Dip) NEGATIVE (NEGATIVE); UR LEUKOCYTE ESTERASE (Dip) 2+ Leu/ul (NEGATIVE); UR MUCUS FEW /HPF (NONE SEEN); UR NITRITE (Dip) NEGATIVE (NEGATIVE); UR RBC 0 /HPF (0-5); UR SPECIFIC GRAVITY (Dip) 1.012 (1.003-1.030); UR SQUAMOUS EPITHELIAL CELL FEW /HPF (FEW); UR TOTAL PROTEIN (Dip) NEGATIVE (NEGATIVE); UR UROBILINOGEN (Dip) 2+ mg/dL (NEGATIVE); UR WBC 78 /HPF (0-5)
[2018-05-24 13:30] LABS: ALANINE AMINOTRANSFERASE 71 IU/L (13-69); ALBUMIN 2.6 g/dl (3.3-4.9); ALBUMIN/GLOBULIN RATIO 0.76; ALKALINE PHOSPHATASE 210 IU/L (42-121); ANION GAP 13 (5-13); ASPARTATE AMINO TRANSFERASE 73 IU/L (15-46); BILIRUBIN,INDIRECT 3.5 mg/dl (0-1.1); BILIRUBIN,TOTAL 10.3 mg/dl (0.2-1.3); BLOOD UREA NITROGEN 22 mg/dl (7-20); CALCIUM 7.9 mg/dl (8.4-10.2); CARBON DIOXIDE 20 mmol/L (21-31); CHLORIDE 105 mmol/L (97-110); CREATININE 0.86 mg/dl (0.44-1.00); Estimated GFR > 60 mL/min (>60); GLUCOSE 133 mg/dl (70-220); LIPASE 256 U/L (23-300); SODIUM 138 mmol/L (135-144)
[2018-05-24 13:33] LABS: POTASSIUM 2.9 mmol/L (3.5-5.1)
[2018-05-24] MEDS: ONDANSETRON 4 MG INJ IV (13:47)
[2018-05-24] MEDS: SOD CHLORIDE 0.9% 1,000 ML IV (13:48)
[2018-05-24] MEDS: morphine 4 MG/ML VIAL IV (13:48)
[2018-05-24] MEDS: CEFTRIAXONE 1 GM/50 ML (PMX) 50 ML IVPB (13:50)
[2018-05-24] MEDS: POTASSIUM CHLORIDE 50 ML IVPB ×3 (14:14→17:11)
[2018-05-24] MEDS: LIDOCAINE 1% (MPF) 5 ML VIAL (15:59)
[2018-05-24] MEDS ORDERED: NACL 0.9% 3 ML SYG IV (16:00)
[2018-05-24] MEDS ORDERED: ONDANSETRON 4 MG INJ IV (16:00)
[2018-05-24] MEDS ORDERED: DOCUSATE SODIUM 100 MG CAP PO (16:00)
[2018-05-24 16:37] LABS: FLD MN% 27.8 %; FLD PMN% 72.2 %; FLD RBC 1000 /uL; FLD WBC 5554 /cmm
[2018-05-24 16:49] LABS: INR 2.04; PROTIME 23.5 Sec (11.9-14.9); PT RATIO 1.8
[2018-05-24 16:54] LABS: FLD CLARITY CLOUDY; FLD COLOR YELLOW
[2018-05-24 16:54] LABS: FLD TYPE ASCITES
[2018-05-24] MEDS: SUCRALFATE (100 MG/ML) 10ML CUP PO ×2 (17:30→22:23)
[2018-05-24] MEDS: PANTOPRAZOLE (EC) 40 MG TAB PO (18:53)
[2018-05-24] MEDS: POTASSIUM CHLORIDE (SR) 20 MEQ TAB PO (18:53)
[2018-05-24] MEDS: METOCLOPRAMIDE 10 MG TAB PO (22:23)
[2018-05-24] MEDS: METOPROLOL 25 MG TAB PO (22:24)
[2018-05-24] MEDS: LACTULOSE 30ML CUP PO (22:24)
[2018-05-24] MEDS: morphine 2 MG INJ IV (22:27)
[2018-05-25 05:44] LABS: ADD MAN DIFF? NO
[2018-05-25] MEDS: PANTOPRAZOLE (EC) 40 MG TAB PO ×2 (06:53→17:05)
[2018-05-25] MEDS: METOCLOPRAMIDE 10 MG TAB PO ×3 (06:53→21:30)
[2018-05-25] MEDS: LACTULOSE 30ML CUP PO ×3 (06:53→21:30)
[2018-05-25 07:15] LABS: ABNORMAL IP MESSAGE 1; BASOPHILS % 0.2 % (0.0-2.0); EOSINOPHILS # 0.2 10^3/ul (0.0-0.5); EOSINOPHILS % 1.9 % (0.0-7.0); HEMATOCRIT 23.6 % (37.0-47.0); HEMOGLOBIN 8.4 g/dl (12.0-16.0); LYMPHOCYTES % 16.3 % (15.0-51.0); MEAN CORPUSCULAR HEMOGLOBIN 36.4 pg (29.0-33.0); MEAN CORPUSCULAR HGB CONC 35.6 g/dl (32.0-37.0); MEAN CORPUSCULAR VOLUME 102.2 fl (82.0-101.0); MEAN PLATELET VOLUME 10.9 fl (7.4-10.4); MONOCYTE # 0.6 10^3/ul (0.3-0.9); MONOCYTES % 5.2 % (0.0-11.0); NEUTROPHIL # 9.4 10^3/ul (1.6-7.5); NEUTROPHILS % 75.8 % (39.0-77.0); PLATELET COUNT 59 10^3/UL (140-415); RED BLOOD COUNT 2.31 10^6/ul (4.20-5.40); RED CELL DISTRIBUTION WIDTH 20.1 % (11.5-14.5)
[2018-05-25 07:15] LABS: WHITE BLOOD COUNT 12.4 10^3/ul (4.8-10.8)
[2018-05-25 07:20] LABS: POSITIVE DIFF @See below
[2018-05-25 07:41] LABS: ANION GAP 9 (5-13); BLOOD UREA NITROGEN 23 mg/dl (7-20); CALCIUM 8.2 mg/dl (8.4-10.2); CARBON DIOXIDE 22 mmol/L (21-31); CHLORIDE 108 mmol/L (97-110); CREATININE 0.91 mg/dl (0.44-1.00); Estimated GFR > 60 mL/min (>60); GLUCOSE 90 mg/dl (70-220); MAGNESIUM 1.3 mg/dl (1.7-2.5); PHOSPHORUS 3.1 mg/dl (2.5-4.9); POTASSIUM 3.3 mmol/L (3.5-5.1); SODIUM 139 mmol/L (135-144)
[2018-05-25] MEDS: SUCRALFATE (100 MG/ML) 10ML CUP PO ×4 (08:27→21:30)
[2018-05-25] MEDS: AMIODARONE 200 MG TAB PO (09:00)
[2018-05-25] MEDS: predniSOLONE (3 MG/ML PO SYG) PO ×2 (09:00→14:59)
[2018-05-25] MEDS: METOPROLOL 25 MG TAB PO ×2 (09:00→21:31)
[2018-05-25 09:04] LABS: ANISOCYTOSIS 3+ (0-0); BAND NEUTROPHILS #M 3.3 10^3/ul (0.0-0.6); BAND NEUTROPHILS % (M) 27 % (0-4); BURR CELLS 1+ (0-0); LYMPHOCYTES #M 0.7 10^3/ul (0.8-2.9); LYMPHOCYTES % (M) 6 % (15-51); MONOCYTE #M 0.3 10^3/ul (0.3-0.9); MONOCYTES % (M) 3 % (0-11); PLATELET ESTIMATE SIG DECREASED; POIKILOCYTOSIS 3+ (0-0); POLYCHROMASIA 1+ (0-0); SCHISTOCYTES 1+ (0-0); SEG NEUT #M 8.3 10^3/ul (1.6-7.5); SEGMENTED NEUTROPHILS (M) % 64 % (39-77); SMUDGE%M 23 % (0-0); TARGET CELLS 1+ (0-0)
[2018-05-25] MEDS: ASPIRIN 81 MG TAB PO (09:06)
[2018-05-25] MEDS ORDERED: VANCOMYCIN IV PER PHARMACY XX (09:30)
[2018-05-25] MEDS: POTASSIUM CHLORIDE (SR) 20 MEQ TAB PO (10:04)
[2018-05-25] MEDS: VANCOMYCIN 1.5 GM in SOD CHLORIDE 0.9% 250 ML IVPB (11:15)
[2018-05-25] MEDS: MAGNESIUM SULFATE 4 GM/100 ML 100 ML IVPB (12:37)
[2018-05-25] MEDS: CEFTRIAXONE 1 GM/50 ML (PMX) 50 ML IVPB (14:55)
[2018-05-25] MEDS: SPIRONOLACTONE 50 MG TAB PO (18:28)
[2018-05-25] MEDS: morphine 2 MG INJ IV (20:01)
[2018-05-25] MEDS: VANCOMYCIN 750 MG in SOD CHLORIDE 0.9% 150 ML IVPB (23:32)
[2018-05-26] MEDS: morphine 2 MG INJ IV ×3 (00:07→19:41)
[2018-05-26 05:14] LABS: ADD MAN DIFF? NO
[2018-05-26 05:23] LABS: WHITE BLOOD COUNT 8.6 10^3/ul (4.8-10.8)
[2018-05-26 05:23] LABS: ABNORMAL IP MESSAGE 1; HEMATOCRIT 22.4 % (37.0-47.0); HEMOGLOBIN 8.1 g/dl (12.0-16.0); LYMPHOCYTES # 1.2 10^3/ul (0.8-2.9); LYMPHOCYTES % 13.6 % (15.0-51.0); MEAN CORPUSCULAR HEMOGLOBIN 36.3 pg (29.0-33.0); MEAN CORPUSCULAR HGB CONC 36.2 g/dl (32.0-37.0); MEAN CORPUSCULAR VOLUME 100.4 fl (82.0-101.0); MEAN PLATELET VOLUME 11.2 fl (7.4-10.4); MONOCYTE # 0.3 10^3/ul (0.3-0.9); MONOCYTES % 3.1 % (0.0-11.0); NEUTROPHIL # 7.1 10^3/ul (1.6-7.5); RED BLOOD COUNT 2.23 10^6/ul (4.20-5.40); RED CELL DISTRIBUTION WIDTH 19.3 % (11.5-14.5)
[2018-05-26 05:40] LABS: ANION GAP 8 (5-13); BLOOD UREA NITROGEN 22 mg/dl (7-20); CALCIUM 8.1 mg/dl (8.4-10.2); CARBON DIOXIDE 21 mmol/L (21-31); CHLORIDE 110 mmol/L (97-110); CREATININE 0.95 mg/dl (0.44-1.00); Estimated GFR 60 mL/min (>60); GLUCOSE 125 mg/dl (70-220); MAGNESIUM 2.2 mg/dl (1.7-2.5); SODIUM 139 mmol/L (135-144)
[2018-05-26 05:43] LABS: POSITIVE DIFF @See below
[2018-05-26 05:45] LABS: PLATELET COUNT 58 10^3/UL (140-415)
[2018-05-26] MEDS: LACTULOSE 30ML CUP PO ×3 (06:00→21:39)
[2018-05-26] MEDS: SPIRONOLACTONE 50 MG TAB PO ×2 (06:01→17:00)
[2018-05-26] MEDS: METOCLOPRAMIDE 10 MG TAB PO ×3 (06:01→21:39)
[2018-05-26] MEDS: PANTOPRAZOLE (EC) 40 MG TAB PO ×2 (06:03→17:00)
[2018-05-26] MEDS: ASPIRIN 81 MG TAB PO (08:43)
[2018-05-26] MEDS: SUCRALFATE (100 MG/ML) 10ML CUP PO ×4 (08:43→21:35)
[2018-05-26] MEDS: AMIODARONE 200 MG TAB PO (08:44)
[2018-05-26] MEDS: METOPROLOL 25 MG TAB PO ×2 (08:44→21:37)
[2018-05-26] MEDS: VANCOMYCIN 750 MG in SOD CHLORIDE 0.9% 150 ML IVPB (12:33)
[2018-05-26] MEDS: CEFTRIAXONE 1 GM/50 ML (PMX) 50 ML IVPB (15:44)
[2018-05-26 23:09] LABS: VANCOMYCIN,TROUGH 20.3 ug/ml (10.0-20.0)
[2018-05-27] MEDS: morphine 2 MG INJ IV ×2 (00:38→05:06)
[2018-05-27] MEDS: SPIRONOLACTONE 50 MG TAB PO (05:04)
[2018-05-27] MEDS: LACTULOSE 30ML CUP PO (05:05)
[2018-05-27] MEDS: METOCLOPRAMIDE 10 MG TAB PO (05:05)
[2018-05-27] MEDS: PANTOPRAZOLE (EC) 40 MG TAB PO (05:06)
[2018-05-27 05:20] LABS: ADD MAN DIFF? NO
[2018-05-27 05:27] LABS: WHITE BLOOD COUNT 12.7 10^3/ul (4.8-10.8)
[2018-05-27 05:27] LABS: ABNORMAL IP MESSAGE 1; BASOPHILS % 0.1 % (0.0-2.0); EOSINOPHILS # 0.1 10^3/ul (0.0-0.5); EOSINOPHILS % 0.4 % (0.0-7.0); HEMATOCRIT 23.1 % (37.0-47.0); HEMOGLOBIN 8.3 g/dl (12.0-16.0); LYMPHOCYTES # 1.7 10^3/ul (0.8-2.9); LYMPHOCYTES % 13.4 % (15.0-51.0); MEAN CORPUSCULAR HEMOGLOBIN 36.1 pg (29.0-33.0); MEAN CORPUSCULAR HGB CONC 35.9 g/dl (32.0-37.0); MEAN CORPUSCULAR VOLUME 100.4 fl (82.0-101.0); MEAN PLATELET VOLUME 13.4 fl (7.4-10.4); MONOCYTE # 0.6 10^3/ul (0.3-0.9); NEUTROPHIL # 10.2 10^3/ul (1.6-7.5); NEUTROPHILS % 80.6 % (39.0-77.0); PLATELET COUNT 135 10^3/UL (140-415); RED CELL DISTRIBUTION WIDTH 20.2 % (11.5-14.5)
[2018-05-27 05:42] LABS: POSITIVE DIFF @See below
[2018-05-27 08:33] LABS: ANION GAP 8 (5-13); BLOOD UREA NITROGEN 26 mg/dl (7-20); CALCIUM 8.8 mg/dl (8.4-10.2); CARBON DIOXIDE 21 mmol/L (21-31); CHLORIDE 109 mmol/L (97-110); CREATININE 1.36 mg/dl (0.44-1.00); Estimated GFR 40 mL/min (>60); GLUCOSE 92 mg/dl (70-220); MAGNESIUM 2.2 mg/dl (1.7-2.5); POTASSIUM 3.8 mmol/L (3.5-5.1); SODIUM 138 mmol/L (135-144)
[2018-05-27] MEDS: VANCOMYCIN 1 GM 250 ML IVPB (09:02)
[2018-05-27] MEDS: ASPIRIN 81 MG TAB PO (09:02)
[2018-05-27] MEDS: AMIODARONE 200 MG TAB PO (09:02)
[2018-05-27] MEDS: METOPROLOL 25 MG TAB PO (09:03)
[2018-05-27] MEDS: SUCRALFATE (100 MG/ML) 10ML CUP PO ×2 (09:03→12:50)
== END 2018-05-27 13:19 | disposition home or self-care (01) | DRG 872 ==
LOC: E/R 12:09 → PP2 16:05
DX: A41.89 Other specified sepsis (principal); N39.0 Urinary tract infection, site not specified; K70.31 Alcoholic cirrhosis of liver with ascites; I48.91 Unspecified atrial fibrillation; I10 Essential (primary) hypertension; F10.21 Alcohol dependence, in remission; A41.81 Sepsis due to Enterococcus
CPT/HCPCS: 74176; 76705; 80048; 80053; 80202; 81001; 83690; 83735; 84100; 85025; 85610; 87040; 87070; 87075; 87081; 87086; 87102; 87116; 89051; 93005; 93970; 96365; 96375; 99285-25

== ENCOUNTER 2018-05-28 22:29 | Inpatient (IN) | payer BC ==
[2018-05-28 23:53] LABS: ADD MAN DIFF? NO
[2018-05-29] MEDS: ONDANSETRON 4 MG INJ IV (00:06)
[2018-05-29] MEDS: morphine 4 MG/ML VIAL IV (00:07)
[2018-05-29 00:21] LABS: ALANINE AMINOTRANSFERASE 69 IU/L (13-69); ALBUMIN 2.2 g/dl (3.3-4.9); ALBUMIN/GLOBULIN RATIO 0.59; ALKALINE PHOSPHATASE 261 IU/L (42-121); ANION GAP 16 (5-13); ASPARTATE AMINO TRANSFERASE 85 IU/L (15-46); BILIRUBIN,INDIRECT 2.6 mg/dl (0-1.1); BILIRUBIN,TOTAL 6.4 mg/dl (0.2-1.3); BLOOD UREA NITROGEN 34 mg/dl (7-20); CALCIUM 8.4 mg/dl (8.4-10.2); CARBON DIOXIDE 16 mmol/L (21-31); CHLORIDE 103 mmol/L (97-110); Estimated GFR 20 mL/min (>60); GLUCOSE 80 mg/dl (70-220); LIPASE 118 U/L (23-300); POTASSIUM 4.1 mmol/L (3.5-5.1); SODIUM 135 mmol/L (135-144); TOTAL PROTEIN 5.9 g/dl (6.1-8.1)
[2018-05-29 00:38] LABS: ADD UMIC YES; UR ASCORBIC ACID NEGATIVE (NEGATIVE); UR BACTERIA FEW /HPF (NONE SEEN); UR BILIRUBIN (Dip) 1+ mg/dL (NEGATIVE); UR BLOOD (Dip) 3+ mg/dL (NEGATIVE); UR BUDDING YEAST FEW /HPF (NONE SEEN); UR CLARITY CLOUDY (CLEAR); UR COLOR AMBER (YELLOW); UR GLUCOSE (Dip) NEGATIVE (NEGATIVE); UR KETONES (Dip) NEGATIVE (NEGATIVE); UR LEUKOCYTE ESTERASE (Dip) 2+ Leu/ul (NEGATIVE); UR MUCUS MODERATE /HPF (NONE SEEN); UR NITRITE (Dip) NEGATIVE (NEGATIVE); UR RBC 37 /HPF (0-5); UR SPECIFIC GRAVITY (Dip) 1.016 (1.003-1.030); UR SQUAMOUS EPITHELIAL CELL MANY /HPF (FEW); UR TOTAL PROTEIN (Dip) 1+ mg/dl (NEGATIVE); UR UROBILINOGEN (Dip) 1+ mg/dL (NEGATIVE); UR WBC > 182 /HPF (0-5)
[2018-05-29 00:43] LABS: ABNORMAL IP MESSAGE 1; BASOPHILS % 0.1 % (0.0-2.0); EOSINOPHILS # 0.1 10^3/ul (0.0-0.5); EOSINOPHILS % 0.6 % (0.0-7.0); HEMATOCRIT 24.1 % (37.0-47.0); HEMOGLOBIN 8.5 g/dl (12.0-16.0); LYMPHOCYTES # 1.3 10^3/ul (0.8-2.9); LYMPHOCYTES % 12.4 % (15.0-51.0); MEAN CORPUSCULAR HEMOGLOBIN 35.7 pg (29.0-33.0); MEAN CORPUSCULAR HGB CONC 35.3 g/dl (32.0-37.0); MEAN CORPUSCULAR VOLUME 101.3 fl (82.0-101.0); MEAN PLATELET VOLUME 11.3 fl (7.4-10.4); MONOCYTE # 0.6 10^3/ul (0.3-0.9); MONOCYTES % 5.1 % (0.0-11.0); NEUTROPHIL # 8.8 10^3/ul (1.6-7.5); NEUTROPHILS % 80.8 % (39.0-77.0); PLATELET COUNT 75 10^3/UL (140-415); POSITIVE DIFF @See below; RED BLOOD COUNT 2.38 10^6/ul (4.20-5.40)
[2018-05-29 00:43] LABS: WHITE BLOOD COUNT 10.9 10^3/ul (4.8-10.8)
[2018-05-29 00:48] LABS: INR 1.89; PROTIME 22.1 Sec (11.9-14.9); PT RATIO 1.7
[2018-05-29] MEDS: SOD CHLORIDE 0.9% 1,000 ML IV (01:27)
[2018-05-29] MEDS: CEFTRIAXONE 1 GM/50 ML (PMX) 50 ML IVPB (05:35)
[2018-05-29] MEDS ORDERED: NACL 0.9% 3 ML SYG IV (07:00)
[2018-05-29] MEDS ORDERED: ACETAMINOPHEN 325 MG TAB PO (07:00)
[2018-05-29] MEDS: HYDROmorphONE 0.5 MG/0.5 ML SYG IV ×3 (07:12→16:46)
[2018-05-29] MEDS ORDERED: morphine 2 MG INJ IV (07:30)
[2018-05-29 07:35] LABS: LACTIC ACID 1.8 mmol/L (0.5-2.0)
[2018-05-29 07:37] LABS: ETHANOL < 10.0 mg/dl
[2018-05-29] MEDS: ALBUMIN HUMAN 25% 100 ML IV ×3 (08:14→16:30)
[2018-05-29] MEDS ORDERED: HEPARIN 5,000 UNIT/0.5 ML VIAL SC (09:00)
[2018-05-29] MEDS: CIPROFLOXACIN 500 MG TAB PO (10:36)
[2018-05-29] MEDS: SUCRALFATE (100 MG/ML) 10ML CUP PO ×4 (10:36→21:04)
[2018-05-29] MEDS: ASPIRIN 81 MG TAB PO (10:36)
[2018-05-29] MEDS: HEPARIN 5,000 UNIT/1 ML VIAL SC ×2 (11:30→21:06)
[2018-05-29] MEDS: LACTULOSE 30ML CUP PO ×2 (14:12→21:04)
[2018-05-29] MEDS: LIDOCAINE 1% (MPF) 5 ML VIAL (15:15)
[2018-05-29 16:17] LABS: FLUID LD 166 U/L; FLUID TYPE PARACENTESIS FLUID
[2018-05-29 16:18] LABS: FLUID TOTAL PROTEIN < 2.0 g/dl
[2018-05-29 17:45] LABS: FLD MN% 79.1 %; FLD PMN% 20.9 %; FLD RBC 0 /uL; FLD WBC 221 /cmm
[2018-05-29 17:55] LABS: FLD CLARITY CLEAR; FLD COLOR YELLOW
[2018-05-29 17:55] LABS: FLD TYPE PARACENTHESIS
[2018-05-29] MEDS ORDERED: SPIRONOLACTONE 50 MG TAB PO (18:00)
[2018-05-29] MEDS ORDERED: HEPARIN 5,000 UNIT/0.5 ML VIAL (21:02)
[2018-05-30] MEDS: ALBUMIN HUMAN 25% 100 ML IV ×2 (00:33→07:50)
[2018-05-30] MEDS: CIPROFLOXACIN 500 MG TAB PO ×2 (00:33→17:13)
[2018-05-30] MEDS: PANTOPRAZOLE (EC) 40 MG TAB PO (05:27)
[2018-05-30] MEDS: LACTULOSE 30ML CUP PO ×3 (05:27→21:23)
[2018-05-30 06:12] LABS: WHITE BLOOD COUNT 9.3 10^3/ul (4.8-10.8)
[2018-05-30 06:12] LABS: ABNORMAL IP MESSAGE 1; HEMATOCRIT 18.6 % (37.0-47.0); MEAN CORPUSCULAR HEMOGLOBIN 36.8 pg (29.0-33.0); MEAN CORPUSCULAR VOLUME 102.2 fl (82.0-101.0); MEAN PLATELET VOLUME 10.6 fl (7.4-10.4); PLATELET COUNT 61 10^3/UL (140-415); RED BLOOD COUNT 1.82 10^6/ul (4.20-5.40); RED CELL DISTRIBUTION WIDTH 18.1 % (11.5-14.5)
[2018-05-30 06:22] LABS: ADD MAN DIFF? YES; POSITIVE DIFF @See below
[2018-05-30 06:23] LABS: HEMOGLOBIN 6.7 g/dl (12.0-16.0)
[2018-05-30] MEDS: SOD CHLORIDE 0.9% 250 ML IV* (06:30)
[2018-05-30 06:36] LABS: ALANINE AMINOTRANSFERASE 48 IU/L (13-69); ALBUMIN 3.1 g/dl (3.3-4.9); ALBUMIN/GLOBULIN RATIO 1.29; ALKALINE PHOSPHATASE 165 IU/L (42-121); ANION GAP 15 (5-13); ASPARTATE AMINO TRANSFERASE 59 IU/L (15-46); BILIRUBIN,INDIRECT 2.5 mg/dl (0-1.1); BILIRUBIN,TOTAL 7.2 mg/dl (0.2-1.3); BLOOD UREA NITROGEN 40 mg/dl (7-20); CALCIUM 8.8 mg/dl (8.4-10.2); CARBON DIOXIDE 17 mmol/L (21-31); CHLORIDE 104 mmol/L (97-110); CREATININE 2.93 mg/dl (0.44-1.00); Estimated GFR 16 mL/min (>60); GLUCOSE 103 mg/dl (70-220); MAGNESIUM 1.9 mg/dl (1.7-2.5); PHOSPHORUS 4.3 mg/dl (2.5-4.9); POTASSIUM 4.2 mmol/L (3.5-5.1); SODIUM 136 mmol/L (135-144); TOTAL PROTEIN 5.5 g/dl (6.1-8.1)
[2018-05-30 06:41] LABS: HEMOGLOBIN A1C 5.2 % (0-5.9)
[2018-05-30 06:52] LABS: FREE THYROXINE INDEX (Calc) 2.39 ug/ml (0.65-3.89); T3 UPTAKE 59.8 % (23.5-40.5)
[2018-05-30] MEDS ORDERED: HEPARIN 5,000 UNIT/0.5 ML VIAL (07:41)
[2018-05-30] MEDS: SUCRALFATE (100 MG/ML) 10ML CUP PO ×4 (07:49→20:19)
[2018-05-30] MEDS: ASPIRIN 81 MG TAB PO (09:00)
[2018-05-30] MEDS: HEPARIN 5,000 UNIT/1 ML VIAL SC (09:00)
[2018-05-30 09:32] LABS: IMMEDIATE SPIN CROSSMATCH 1 2
[2018-05-30] MEDS: PHYTONADIONE 10 MG/ML INJ SC (18:10)
[2018-05-30 21:07] LABS: HEMATOCRIT 26.1 % (37.0-47.0); HEMOGLOBIN 9.3 g/dl (12.0-16.0)
[2018-05-31] MEDS: HYDROmorphONE 0.5 MG/0.5 ML SYG IV ×3 (00:32→21:44)
[2018-05-31] MEDS: LACTULOSE 30ML CUP PO ×2 (05:22→12:48)
[2018-05-31] MEDS: PANTOPRAZOLE (EC) 40 MG TAB PO (05:22)
[2018-05-31] MEDS: SUCRALFATE (100 MG/ML) 10ML CUP PO ×4 (08:03→20:12)
[2018-05-31 08:10] LABS: ABNORMAL IP MESSAGE 1; HEMATOCRIT 27.5 % (37.0-47.0); HEMOGLOBIN 10.1 g/dl (12.0-16.0); MEAN CORPUSCULAR HEMOGLOBIN 34.9 pg (29.0-33.0); MEAN CORPUSCULAR HGB CONC 36.7 g/dl (32.0-37.0); MEAN CORPUSCULAR VOLUME 95.2 fl (82.0-101.0); MEAN PLATELET VOLUME 11.1 fl (7.4-10.4); PLATELET COUNT 50 10^3/UL (140-415); RED BLOOD COUNT 2.89 10^6/ul (4.20-5.40); RED CELL DISTRIBUTION WIDTH 18.6 % (11.5-14.5)
[2018-05-31 08:10] LABS: WHITE BLOOD COUNT 12.1 10^3/ul (4.8-10.8)
[2018-05-31 08:13] LABS: ADD MAN DIFF? YES; POSITIVE DIFF @See below
[2018-05-31 08:16] LABS: INR 2.06; PROTIME 23.7 Sec (11.9-14.9); PT RATIO 1.9
[2018-05-31 08:18] LABS: ANION GAP 16 (5-13); BLOOD UREA NITROGEN 42 mg/dl (7-20); CALCIUM 9.1 mg/dl (8.4-10.2); CARBON DIOXIDE 18 mmol/L (21-31); CHLORIDE 104 mmol/L (97-110); CREATININE 3.32 mg/dl (0.44-1.00); Estimated GFR 14 mL/min (>60); GLUCOSE 95 mg/dl (70-220); MAGNESIUM 1.9 mg/dl (1.7-2.5); PHOSPHORUS 4.1 mg/dl (2.5-4.9); POTASSIUM 3.7 mmol/L (3.5-5.1); SODIUM 138 mmol/L (135-144)
[2018-05-31 09:24] LABS: ANISOCYTOSIS 3+ (0-0); BAND NEUTROPHILS #M 2.6 10^3/ul (0.0-0.6); BAND NEUTROPHILS % (M) 22 % (0-4); BURR CELLS 3+ (0-0); EOSINOPHILS % (M) 1 % (0-7); LYMPHOCYTES #M 1.4 10^3/ul (0.8-2.9); LYMPHOCYTES % (M) 12 % (15-51); MICROCYTOSIS 1+ (0-0); MONOCYTE #M 0.7 10^3/ul (0.3-0.9); MONOCYTES % (M) 6 % (0-11); MYELOCYTES #M 0.2 10^3/ul (0.0-0.0); MYELOCYTES % (M) 2 % (0-0); PLATELET ESTIMATE SIG DECREASED; POIKILOCYTOSIS 3+ (0-0); POLYCHROMASIA 1+ (0-0); SEG NEUT #M 7.2 10^3/ul (1.6-7.5); SEGMENTED NEUTROPHILS (M) % 57 % (39-77); SMUDGE%M 6 % (0-0); TARGET CELLS 1+ (0-0)
[2018-05-31] MEDS: MIDODRINE 5 MG TAB PO ×2 (09:33→17:00)
[2018-05-31] MEDS: ALBUMIN HUMAN 25% 100 ML IV (09:38)
[2018-05-31] MEDS: OCTREOTIDE 50 MCG INJ SC ×2 (10:01→14:54)
[2018-05-31 10:29] LABS: ADD UMIC YES; UR ASCORBIC ACID NEGATIVE (NEGATIVE); UR BACTERIA FEW /HPF (NONE SEEN); UR BILIRUBIN (Dip) NEGATIVE (NEGATIVE); UR BLOOD (Dip) 1+ mg/dL (NEGATIVE); UR CLARITY SLIGHTLY CLOUDY (CLEAR); UR COLOR AMBER (YELLOW); UR GLUCOSE (Dip) NEGATIVE (NEGATIVE); UR KETONES (Dip) NEGATIVE (NEGATIVE); UR LEUKOCYTE ESTERASE (Dip) NEGATIVE Leu/ul (NEGATIVE); UR MUCUS FEW /HPF (NONE SEEN); UR NITRITE (Dip) NEGATIVE (NEGATIVE); UR RBC 3 /HPF (0-5); UR SPECIFIC GRAVITY (Dip) 1.015 (1.003-1.030); UR TOTAL PROTEIN (Dip) NEGATIVE (NEGATIVE); UR UROBILINOGEN (Dip) NEGATIVE (NEGATIVE); UR WBC 4 /HPF (0-5)
[2018-05-31 10:43] LABS: SODIUM,URINE RANDOM 18 mmol/L (30-90)
[2018-05-31 10:43] LABS: CREATININE,URINE RANDOM 101.87 mg/dl (20-320)
[2018-05-31] MEDS ORDERED: ERTAPENEM SODIUM 1 GM in SOD CHLORIDE 0.9% 100 ML IVPB (11:30)
[2018-05-31] MEDS: ERTAPENEM SODIUM 0.5 GM in SOD CHLORIDE 0.9% 100 ML IVPB (12:48)
[2018-05-31] MEDS ORDERED: MEROPENEM 1 GM/50ML(PMX) 50 ML IVPB (14:00)
[2018-05-31] MEDS: DIGOXIN 0.25 MG TAB PO (15:03)
[2018-05-31] MEDS: METOPROLOL 25 MG TAB PO ×2 (16:30→21:39)
[2018-05-31] MEDS: AMIODARONE 150MG/D5W BOLUS 100 ML IV (18:24)
[2018-05-31] MEDS: AMIODARONE 900 MG in DEXTROSE 5% 482 ML IV (18:49)
[2018-05-31] MEDS: AMIODARONE 200 MG TAB PO (21:39)
[2018-06-01] MEDS: OCTREOTIDE 50 MCG INJ SC (00:20)
[2018-06-01] MEDS: PANTOPRAZOLE (EC) 40 MG TAB PO (05:37)
[2018-06-01] MEDS: HYDROmorphONE 0.5 MG/0.5 ML SYG IV (06:58)
[2018-06-01 08:19] LABS: ADD MAN DIFF? NO
[2018-06-01 08:42] LABS: ABNORMAL IP MESSAGE 1; BASOPHILS % 0.2 % (0.0-2.0); EOSINOPHILS # 0.1 10^3/ul (0.0-0.5); EOSINOPHILS % 1.1 % (0.0-7.0); HEMATOCRIT 25.9 % (37.0-47.0); HEMOGLOBIN 9.2 g/dl (12.0-16.0); LYMPHOCYTES # 1.8 10^3/ul (0.8-2.9); LYMPHOCYTES % 14.1 % (15.0-51.0); MEAN CORPUSCULAR HEMOGLOBIN 34.2 pg (29.0-33.0); MEAN CORPUSCULAR HGB CONC 35.5 g/dl (32.0-37.0); MEAN CORPUSCULAR VOLUME 96.3 fl (82.0-101.0); MEAN PLATELET VOLUME 12.1 fl (7.4-10.4); MONOCYTE # 0.9 10^3/ul (0.3-0.9); MONOCYTES % 7.1 % (0.0-11.0); NEUTROPHIL # 9.7 10^3/ul (1.6-7.5); NEUTROPHILS % 76.8 % (39.0-77.0); RED BLOOD COUNT 2.69 10^6/ul (4.20-5.40); RED CELL DISTRIBUTION WIDTH 18.1 % (11.5-14.5)
[2018-06-01 08:42] LABS: WHITE BLOOD COUNT 12.6 10^3/ul (4.8-10.8)
[2018-06-01 08:48] LABS: ANION GAP 13 (5-13); BLOOD UREA NITROGEN 42 mg/dl (7-20); CALCIUM 8.7 mg/dl (8.4-10.2); CARBON DIOXIDE 17 mmol/L (21-31); CHLORIDE 107 mmol/L (97-110); CREATININE 3.66 mg/dl (0.44-1.00); Estimated GFR 13 mL/min (>60); GLUCOSE 110 mg/dl (70-220); POTASSIUM 4.3 mmol/L (3.5-5.1); SODIUM 137 mmol/L (135-144)
[2018-06-01] MEDS: SUCRALFATE (100 MG/ML) 10ML CUP PO ×4 (08:55→20:49)
[2018-06-01] MEDS: AMIODARONE 200 MG TAB PO (08:56)
[2018-06-01] MEDS: LACTULOSE 30ML CUP PO (08:58)
[2018-06-01 09:00] LABS: POSITIVE DIFF @See below
[2018-06-01] MEDS: METOPROLOL 25 MG TAB PO ×2 (09:00→20:49)
[2018-06-01 09:01] LABS: PLATELET COUNT 83 10^3/UL (140-415)
[2018-06-01] MEDS: ALBUMIN HUMAN 25% 100 ML IV (10:01)
[2018-06-01] MEDS: MIDODRINE 5 MG TAB PO ×3 (10:14→17:50)
[2018-06-01 12:01] LABS: ALANINE AMINOTRANSFERASE 35 IU/L (13-69); ALBUMIN 3.3 g/dl (3.3-4.9); ALBUMIN/GLOBULIN RATIO 1.32; ALKALINE PHOSPHATASE 152 IU/L (42-121); ANION GAP 17 (5-13); ASPARTATE AMINO TRANSFERASE 55 IU/L (15-46); BILIRUBIN,INDIRECT 2.9 mg/dl (0-1.1); BILIRUBIN,TOTAL 7.5 mg/dl (0.2-1.3); BLOOD UREA NITROGEN 40 mg/dl (7-20); CALCIUM 9.1 mg/dl (8.4-10.2); CARBON DIOXIDE 16 mmol/L (21-31); CHLORIDE 104 mmol/L (97-110); CREATININE 3.69 mg/dl (0.44-1.00); Estimated GFR 12 mL/min (>60); GLUCOSE 127 mg/dl (70-220); POTASSIUM 3.8 mmol/L (3.5-5.1); SODIUM 137 mmol/L (135-144); TOTAL PROTEIN 5.8 g/dl (6.1-8.1)
[2018-06-01] MEDS: OCTREOTIDE 100 MCG INJ SC ×3 (12:33→20:49)
[2018-06-01 13:12] LABS: CREATININE, RANDOM URINE 99 mg/dL (20-275); MICROALBUMIN 2.1 mg/dL; MICROALBUMIN/CREATININE RATIO 21 (<30)
[2018-06-01] MEDS: ERTAPENEM SODIUM 0.5 GM in SOD CHLORIDE 0.9% 100 ML IVPB (14:08)
[2018-06-01] MEDS ORDERED: METOPROLOL 5 MG INJ IV (16:30)
[2018-06-01] MEDS: HYDROmorphONE 2 MG TAB PO (17:57)
[2018-06-01 21:06] LABS: ADD UMIC YES; UR ASCORBIC ACID NEGATIVE (NEGATIVE); UR BILIRUBIN (Dip) NEGATIVE (NEGATIVE); UR BLOOD (Dip) 3+ mg/dL (NEGATIVE); UR BUDDING YEAST FEW /HPF (NONE SEEN); UR CLARITY SLIGHTLY CLOUDY (CLEAR); UR COLOR AMBER (YELLOW); UR GLUCOSE (Dip) NEGATIVE (NEGATIVE); UR KETONES (Dip) NEGATIVE (NEGATIVE); UR LEUKOCYTE ESTERASE (Dip) 2+ Leu/ul (NEGATIVE); UR NITRITE (Dip) NEGATIVE (NEGATIVE); UR RBC 6 /HPF (0-5); UR SPECIFIC GRAVITY (Dip) 1.015 (1.003-1.030); UR SQUAMOUS EPITHELIAL CELL FEW /HPF (FEW); UR TOTAL PROTEIN (Dip) 1+ mg/dl (NEGATIVE); UR UROBILINOGEN (Dip) NEGATIVE (NEGATIVE); UR WBC 88 /HPF (0-5)
[2018-06-02] MEDS: HYDROmorphONE 2 MG TAB PO (01:56)
[2018-06-02] MEDS: HYDROmorphONE 0.5 MG/0.5 ML SYG IV (05:46)
[2018-06-02] MEDS: PANTOPRAZOLE (EC) 40 MG TAB PO (05:46)
[2018-06-02 06:54] LABS: WHITE BLOOD COUNT 15.4 10^3/ul (4.8-10.8)
[2018-06-02 06:54] LABS: ABNORMAL IP MESSAGE 1; HEMATOCRIT 26.4 % (37.0-47.0); HEMOGLOBIN 9.5 g/dl (12.0-16.0); MEAN CORPUSCULAR HEMOGLOBIN 34.5 pg (29.0-33.0); MEAN PLATELET VOLUME 10.7 fl (7.4-10.4); PLATELET COUNT 73 10^3/UL (140-415); RED BLOOD COUNT 2.75 10^6/ul (4.20-5.40); RED CELL DISTRIBUTION WIDTH 17.6 % (11.5-14.5)
[2018-06-02 07:01] LABS: ADD MAN DIFF? YES; POSITIVE DIFF @See below
[2018-06-02 07:14] LABS: ANION GAP 13 (5-13); BLOOD UREA NITROGEN 42 mg/dl (7-20); CALCIUM 8.6 mg/dl (8.4-10.2); CARBON DIOXIDE 16 mmol/L (21-31); CHLORIDE 108 mmol/L (97-110); CREATININE 3.52 mg/dl (0.44-1.00); Estimated GFR 13 mL/min (>60); GLUCOSE 112 mg/dl (70-220); MAGNESIUM 1.8 mg/dl (1.7-2.5); PHOSPHORUS 4.3 mg/dl (2.5-4.9); POTASSIUM 3.9 mmol/L (3.5-5.1); SODIUM 137 mmol/L (135-144)
[2018-06-02 08:22] LABS: ANISOCYTOSIS 3+ (0-0); BAND NEUTROPHILS #M 2.1 10^3/ul (0.0-0.6); BAND NEUTROPHILS % (M) 14 % (0-4); BURR CELLS 2+ (0-0); EOSINOPHILS % (M) 2 % (0-7); GIANT THROMBO% (M) 1 % (0-0); LYMPHOCYTES #M 1.8 10^3/ul (0.8-2.9); LYMPHOCYTES % (M) 12 % (15-51); MONOCYTE #M 0.3 10^3/ul (0.3-0.9); MONOCYTES % (M) 2 % (0-11); MYELOCYTES #M 0.1 10^3/ul (0.0-0.0); MYELOCYTES % (M) 1 % (0-0); PLATELET ESTIMATE DECREASED; POIKILOCYTOSIS 2+ (0-0); POLYCHROMASIA 1+ (0-0); SEG NEUT #M 10.9 10^3/ul (1.6-7.5); SEGMENTED NEUTROPHILS (M) % 69 % (39-77); SMUDGE%M 21 % (0-0); TARGET CELLS 1+ (0-0)
[2018-06-02] MEDS: SUCRALFATE (100 MG/ML) 10ML CUP PO ×4 (08:39→21:27)
[2018-06-02] MEDS: LACTULOSE 30ML CUP PO (08:42)
[2018-06-02] MEDS: ALBUMIN HUMAN 25% 100 ML IV (08:42)
[2018-06-02] MEDS: OCTREOTIDE 100 MCG INJ SC ×3 (08:43→21:28)
[2018-06-02] MEDS: MIDODRINE 5 MG TAB PO ×3 (08:44→18:03)
[2018-06-02] MEDS: METOPROLOL 25 MG TAB PO ×2 (08:44→21:28)
[2018-06-02] MEDS: AMIODARONE 200 MG TAB PO (08:45)
[2018-06-02] MEDS: ERTAPENEM SODIUM 0.5 GM in SOD CHLORIDE 0.9% 100 ML IVPB (12:34)
[2018-06-02] MEDS: FLUCONAZOLE 150 MG TAB PO (12:55)
[2018-06-03] MEDS: HYDROmorphONE 0.5 MG/0.5 ML SYG IV ×2 (00:46→06:21)
[2018-06-03] MEDS: SUCRALFATE (100 MG/ML) 10ML CUP PO ×4 (06:21→21:30)
[2018-06-03] MEDS: PANTOPRAZOLE (EC) 40 MG TAB PO (06:21)
[2018-06-03 07:18] LABS: ADD MAN DIFF? NO
[2018-06-03 07:23] LABS: WHITE BLOOD COUNT 14.9 10^3/ul (4.8-10.8)
[2018-06-03 07:23] LABS: ABNORMAL IP MESSAGE 1; BASOPHILS % 0.2 % (0.0-2.0); EOSINOPHILS # 0.2 10^3/ul (0.0-0.5); EOSINOPHILS % 1.2 % (0.0-7.0); HEMATOCRIT 26.9 % (37.0-47.0); HEMOGLOBIN 9.6 g/dl (12.0-16.0); LYMPHOCYTES # 2.1 10^3/ul (0.8-2.9); LYMPHOCYTES % 14.3 % (15.0-51.0); MEAN CORPUSCULAR HEMOGLOBIN 34.5 pg (29.0-33.0); MEAN CORPUSCULAR HGB CONC 35.7 g/dl (32.0-37.0); MEAN CORPUSCULAR VOLUME 96.8 fl (82.0-101.0); MEAN PLATELET VOLUME 10.2 fl (7.4-10.4); MONOCYTES % 6.5 % (0.0-11.0); NEUTROPHIL # 11.5 10^3/ul (1.6-7.5); PLATELET COUNT 72 10^3/UL (140-415); RED BLOOD COUNT 2.78 10^6/ul (4.20-5.40); RED CELL DISTRIBUTION WIDTH 17.1 % (11.5-14.5)
[2018-06-03 07:26] LABS: POSITIVE DIFF @See below
[2018-06-03 07:42] LABS: ANION GAP 11 (5-13); BLOOD UREA NITROGEN 43 mg/dl (7-20); CALCIUM 8.8 mg/dl (8.4-10.2); CARBON DIOXIDE 18 mmol/L (21-31); CHLORIDE 107 mmol/L (97-110); CREATININE 3.49 mg/dl (0.44-1.00); Estimated GFR 13 mL/min (>60); GLUCOSE 95 mg/dl (70-220); MAGNESIUM 1.8 mg/dl (1.7-2.5); PHOSPHORUS 4.4 mg/dl (2.5-4.9); POTASSIUM 3.9 mmol/L (3.5-5.1); SODIUM 136 mmol/L (135-144)
[2018-06-03 07:47] LABS: ALANINE AMINOTRANSFERASE 42 IU/L (13-69); ALKALINE PHOSPHATASE 192 IU/L (42-121); ANION GAP 13 (5-13); ASPARTATE AMINO TRANSFERASE 50 IU/L (15-46); BILIRUBIN,INDIRECT 3.7 mg/dl (0-1.1); BILIRUBIN,TOTAL 9.4 mg/dl (0.2-1.3); BLOOD UREA NITROGEN 43 mg/dl (7-20); CALCIUM 8.8 mg/dl (8.4-10.2); CARBON DIOXIDE 18 mmol/L (21-31); CHLORIDE 106 mmol/L (97-110); CREATININE 3.56 mg/dl (0.44-1.00); Estimated GFR 13 mL/min (>60); GLUCOSE 95 mg/dl (70-220); POTASSIUM 3.8 mmol/L (3.5-5.1); SODIUM 137 mmol/L (135-144)
[2018-06-03] MEDS: LACTULOSE 30ML CUP PO (08:46)
[2018-06-03] MEDS: METOPROLOL 25 MG TAB PO ×2 (08:48→21:31)
[2018-06-03] MEDS: AMIODARONE 200 MG TAB PO (08:48)
[2018-06-03] MEDS: OCTREOTIDE 100 MCG INJ SC ×3 (08:49→21:32)
[2018-06-03] MEDS: ALBUMIN HUMAN 25% 100 ML IV (09:00)
[2018-06-03] MEDS: MIDODRINE 5 MG TAB PO ×3 (10:33→17:50)
[2018-06-03] MEDS: FUROSEMIDE 40 MG INJ IV ×2 (11:30→17:50)
[2018-06-03] MEDS: ERTAPENEM SODIUM 0.5 GM in SOD CHLORIDE 0.9% 100 ML IVPB (13:54)
[2018-06-04] MEDS: HYDROmorphONE 2 MG TAB PO ×2 (05:12→10:40)
[2018-06-04] MEDS: PANTOPRAZOLE (EC) 40 MG TAB PO (05:23)
[2018-06-04] MEDS: ONDANSETRON 4 MG INJ IV ×2 (05:23→21:46)
[2018-06-04] MEDS: FUROSEMIDE 40 MG INJ IV ×2 (05:23→17:05)
[2018-06-04 08:17] LABS: ADD MAN DIFF? NO
[2018-06-04 08:22] LABS: WHITE BLOOD COUNT 16.7 10^3/ul (4.8-10.8)
[2018-06-04 08:22] LABS: BASOPHILS % 0.2 % (0.0-2.0); EOSINOPHILS # 0.2 10^3/ul (0.0-0.5); EOSINOPHILS % 0.9 % (0.0-7.0); HEMATOCRIT 25.5 % (37.0-47.0); HEMOGLOBIN 9.3 g/dl (12.0-16.0); LYMPHOCYTES # 2.5 10^3/ul (0.8-2.9); LYMPHOCYTES % 14.8 % (15.0-51.0); MEAN CORPUSCULAR HEMOGLOBIN 34.8 pg (29.0-33.0); MEAN CORPUSCULAR HGB CONC 36.5 g/dl (32.0-37.0); MEAN CORPUSCULAR VOLUME 95.5 fl (82.0-101.0); MEAN PLATELET VOLUME 12.9 fl (7.4-10.4); MONOCYTE # 1.1 10^3/ul (0.3-0.9); MONOCYTES % 6.7 % (0.0-11.0); NEUTROPHIL # 12.8 10^3/ul (1.6-7.5); NEUTROPHILS % 76.7 % (39.0-77.0); PLATELET COUNT 187 10^3/UL (140-415); RED BLOOD COUNT 2.67 10^6/ul (4.20-5.40); RED CELL DISTRIBUTION WIDTH 16.7 % (11.5-14.5)
[2018-06-04] MEDS: METOPROLOL 25 MG TAB PO ×2 (08:36→21:36)
[2018-06-04] MEDS: SUCRALFATE (100 MG/ML) 10ML CUP PO ×4 (08:36→21:36)
[2018-06-04] MEDS: AMIODARONE 200 MG TAB PO (08:36)
[2018-06-04] MEDS: LACTULOSE 30ML CUP PO (08:37)
[2018-06-04] MEDS: OCTREOTIDE 100 MCG INJ SC ×3 (08:37→21:35)
[2018-06-04] MEDS: MIDODRINE 5 MG TAB PO ×3 (09:01→16:18)
[2018-06-04] MEDS: ALBUMIN HUMAN 25% 100 ML IV (10:09)
[2018-06-04 11:20] LABS: ANION GAP 15 (5-13); BLOOD UREA NITROGEN 46 mg/dl (7-20); CALCIUM 8.9 mg/dl (8.4-10.2); CARBON DIOXIDE 15 mmol/L (21-31); CHLORIDE 106 mmol/L (97-110); CREATININE 3.32 mg/dl (0.44-1.00); Estimated GFR 14 mL/min (>60); GLUCOSE 93 mg/dl (70-220); MAGNESIUM 1.6 mg/dl (1.7-2.5); PHOSPHORUS 4.4 mg/dl (2.5-4.9); SODIUM 136 mmol/L (135-144)
[2018-06-04 11:22] LABS: POTASSIUM 3.6 mmol/L (3.5-5.1)
[2018-06-04] MEDS: ERTAPENEM SODIUM 0.5 GM in SOD CHLORIDE 0.9% 100 ML IVPB (12:37)
[2018-06-04] MEDS: MAGNESIUM SULFATE 1 GM/D5W 100 ML IVPB (15:02)
[2018-06-04] MEDS: NYSTATIN SUSP 5 ML CUP PO ×2 (16:18→21:35)
[2018-06-05] MEDS: PANTOPRAZOLE (EC) 40 MG TAB PO (06:29)
[2018-06-05] MEDS: FUROSEMIDE 40 MG INJ IV ×2 (06:29→18:11)
[2018-06-05] MEDS: SUCRALFATE (100 MG/ML) 10ML CUP PO ×4 (06:29→21:21)
[2018-06-05 08:35] LABS: ADD MAN DIFF? NO
[2018-06-05 08:51] LABS: ABNORMAL IP MESSAGE 1; BASOPHILS % 0.3 % (0.0-2.0); EOSINOPHILS # 0.2 10^3/ul (0.0-0.5); EOSINOPHILS % 1.3 % (0.0-7.0); HEMOGLOBIN 8.8 g/dl (12.0-16.0); LYMPHOCYTES # 2.3 10^3/ul (0.8-2.9); LYMPHOCYTES % 14.5 % (15.0-51.0); MEAN CORPUSCULAR HEMOGLOBIN 34.6 pg (29.0-33.0); MEAN CORPUSCULAR HGB CONC 36.7 g/dl (32.0-37.0); MEAN CORPUSCULAR VOLUME 94.5 fl (82.0-101.0); MEAN PLATELET VOLUME 9.9 fl (7.4-10.4); MONOCYTES % 6.3 % (0.0-11.0); NEUTROPHIL # 12.1 10^3/ul (1.6-7.5); PLATELET COUNT 89 10^3/UL (140-415); POSITIVE DIFF @See below; RED BLOOD COUNT 2.54 10^6/ul (4.20-5.40); RED CELL DISTRIBUTION WIDTH 16.1 % (11.5-14.5)
[2018-06-05 08:51] LABS: WHITE BLOOD COUNT 15.7 10^3/ul (4.8-10.8)
[2018-06-05 09:03] LABS: ANION GAP 16 (5-13); BLOOD UREA NITROGEN 46 mg/dl (7-20); CALCIUM 8.8 mg/dl (8.4-10.2); CARBON DIOXIDE 15 mmol/L (21-31); CHLORIDE 103 mmol/L (97-110); CREATININE 3.37 mg/dl (0.44-1.00); Estimated GFR 14 mL/min (>60); GLUCOSE 111 mg/dl (70-220); MAGNESIUM 1.6 mg/dl (1.7-2.5); PHOSPHORUS 4.6 mg/dl (2.5-4.9); POTASSIUM 3.2 mmol/L (3.5-5.1); SODIUM 134 mmol/L (135-144)
[2018-06-05] MEDS: LACTULOSE 30ML CUP PO (09:03)
[2018-06-05] MEDS: NYSTATIN SUSP 5 ML CUP PO ×4 (09:03→21:20)
[2018-06-05] MEDS: METOPROLOL 25 MG TAB PO ×2 (09:04→21:00)
[2018-06-05] MEDS: AMIODARONE 200 MG TAB PO (09:04)
[2018-06-05 09:05] LABS: INR 2.23; PROTIME 25.3 Sec (11.9-14.9)
[2018-06-05] MEDS: ALBUMIN HUMAN 25% 100 ML IV (09:05)
[2018-06-05] MEDS: MIDODRINE 5 MG TAB PO ×3 (09:20→16:13)
[2018-06-05] MEDS: OCTREOTIDE 100 MCG INJ SC ×3 (09:20→21:21)
[2018-06-05] MEDS ORDERED: VANCOMYCIN IV PER PHARMACY XX (11:30)
[2018-06-05] MEDS: POTASSIUM CHLORIDE (SR) 20 MEQ TAB PO (12:00)
[2018-06-05] MEDS: MAGNESIUM SULFATE 2 GM/50 ML 50 ML IVPB (12:00)
[2018-06-05] MEDS: HYDROmorphONE 2 MG TAB PO ×2 (12:00→21:21)
[2018-06-05 12:35] LABS: ALANINE AMINOTRANSFERASE 34 IU/L (13-69); ALBUMIN 3.3 g/dl (3.3-4.9); ALKALINE PHOSPHATASE 176 IU/L (42-121); ASPARTATE AMINO TRANSFERASE 46 IU/L (15-46); BILIRUBIN,INDIRECT 4.3 mg/dl (0-1.1); TOTAL PROTEIN 5.8 g/dl (6.1-8.1)
[2018-06-05] MEDS: ERTAPENEM SODIUM 0.5 GM in SOD CHLORIDE 0.9% 100 ML IVPB (13:17)
[2018-06-05] MEDS: VANCOMYCIN 1.5 GM in SOD CHLORIDE 0.9% 250 ML IVPB (14:39)
[2018-06-06] MEDS: FUROSEMIDE 40 MG INJ IV ×2 (05:35→18:36)
[2018-06-06] MEDS: LANSOPRAZOLE 30 MG CAP PO (05:36)
[2018-06-06] MEDS: METOPROLOL 25 MG TAB PO ×2 (09:00→09:17)
[2018-06-06] MEDS: OCTREOTIDE 100 MCG INJ SC ×3 (09:16→21:31)
[2018-06-06] MEDS: LACTULOSE 30ML CUP PO (09:16)
[2018-06-06] MEDS: NYSTATIN SUSP 5 ML CUP PO ×4 (09:16→21:31)
[2018-06-06] MEDS: AMIODARONE 200 MG TAB PO (09:16)
[2018-06-06] MEDS: SUCRALFATE (100 MG/ML) 10ML CUP PO ×4 (09:18→21:30)
[2018-06-06] MEDS: ALBUMIN HUMAN 25% 100 ML IV (09:25)
[2018-06-06] MEDS: MIDODRINE 5 MG TAB PO ×3 (09:26→17:00)
[2018-06-06 10:01] LABS: BILIRUBIN,INDIRECT 5.8 mg/dl (0-1.1); BILIRUBIN,TOTAL 5.8 mg/dl (0.2-1.3)
[2018-06-06 10:46] LABS: ADD MAN DIFF? NO
[2018-06-06 11:17] LABS: ALANINE AMINOTRANSFERASE 27 IU/L (13-69); ALKALINE PHOSPHATASE 197 IU/L (42-121); ASPARTATE AMINO TRANSFERASE 48 IU/L (15-46)
[2018-06-06 11:35] LABS: ANION GAP 16 (5-13); BLOOD UREA NITROGEN 49 mg/dl (7-20); CARBON DIOXIDE 15 mmol/L (21-31); CHLORIDE 104 mmol/L (97-110); CREATININE 3.39 mg/dl (0.44-1.00); Estimated GFR 14 mL/min (>60); GLUCOSE 96 mg/dl (70-220); MAGNESIUM 1.9 mg/dl (1.7-2.5); PHOSPHORUS 4.9 mg/dl (2.5-4.9); POTASSIUM 3.6 mmol/L (3.5-5.1); SODIUM 135 mmol/L (135-144)
[2018-06-06 12:20] LABS: BASOPHIL # 0.1 10^3/ul (0.0-0.1); BASOPHILS % 0.3 % (0.0-2.0); EOSINOPHILS # 0.2 10^3/ul (0.0-0.5); EOSINOPHILS % 0.9 % (0.0-7.0); HEMATOCRIT 27.6 % (37.0-47.0); HEMOGLOBIN 9.8 g/dl (12.0-16.0); LYMPHOCYTES % 12.1 % (15.0-51.0); MEAN CORPUSCULAR HEMOGLOBIN 33.9 pg (29.0-33.0); MEAN CORPUSCULAR HGB CONC 35.5 g/dl (32.0-37.0); MEAN CORPUSCULAR VOLUME 95.5 fl (82.0-101.0); MEAN PLATELET VOLUME 10.9 fl (7.4-10.4); MONOCYTE # 1.1 10^3/ul (0.3-0.9); MONOCYTES % 6.5 % (0.0-11.0); NEUTROPHIL # 13.3 10^3/ul (1.6-7.5); NEUTROPHILS % 79.4 % (39.0-77.0); NUCLEATED RED BLOOD CELLS # 0.1 10^3/ul (0.0-0.0); NUCLEATED RED BLOOD CELLS% 0.3 /100WBC (0.0-0.0); PLATELET COUNT 100 10^3/UL (140-415); RED BLOOD COUNT 2.89 10^6/ul (4.20-5.40); RED CELL DISTRIBUTION WIDTH 15.9 % (11.5-14.5)
[2018-06-06 12:20] LABS: WHITE BLOOD COUNT 16.7 10^3/ul (4.8-10.8)
[2018-06-06] MEDS: ERTAPENEM SODIUM 0.5 GM in SOD CHLORIDE 0.9% 100 ML IVPB (12:51)
[2018-06-06] MEDS: HYDROmorphONE 2 MG TAB PO (18:35)
[2018-06-06] MEDS: DIGOXIN 500 MCG INJ IV (19:43)
[2018-06-07] MEDS: FUROSEMIDE 40 MG INJ IV (05:36)
[2018-06-07] MEDS: LANSOPRAZOLE 30 MG CAP PO (05:37)
[2018-06-07 06:47] LABS: VANCOMYCIN,RANDOM 17.1 ug/ml
[2018-06-07] MEDS: ALBUMIN HUMAN 25% 100 ML IV (08:08)
[2018-06-07] MEDS: LACTULOSE 30ML CUP PO (08:08)
[2018-06-07] MEDS: NYSTATIN SUSP 5 ML CUP PO ×4 (08:09→21:00)
[2018-06-07] MEDS: SUCRALFATE (100 MG/ML) 10ML CUP PO ×4 (08:09→21:00)
[2018-06-07] MEDS: OCTREOTIDE 100 MCG INJ SC ×2 (08:09→12:04)
[2018-06-07] MEDS: AMIODARONE 200 MG TAB PO (08:10)
[2018-06-07] MEDS: MIDODRINE 5 MG TAB PO ×3 (08:24→17:12)
[2018-06-07] MEDS: ERTAPENEM SODIUM 0.5 GM in SOD CHLORIDE 0.9% 100 ML IVPB (12:03)
[2018-06-07] MEDS: VANCOMYCIN 750 MG in SOD CHLORIDE 0.9% 150 ML IVPB (13:56)
[2018-06-07] MEDS: OCTREOTIDE 50 MCG INJ SC (22:32)
[2018-06-08] MEDS: HYDROmorphONE 2 MG TAB PO ×3 (02:44→21:07)
[2018-06-08] MEDS: LANSOPRAZOLE 30 MG CAP PO (06:11)
[2018-06-08 06:21] LABS: ADD MAN DIFF? NO
[2018-06-08 06:27] LABS: ABNORMAL IP MESSAGE 1; BASOPHIL # 0.1 10^3/ul (0.0-0.1); BASOPHILS % 0.4 % (0.0-2.0); EOSINOPHILS # 0.1 10^3/ul (0.0-0.5); EOSINOPHILS % 0.9 % (0.0-7.0); HEMATOCRIT 24.7 % (37.0-47.0); HEMOGLOBIN 8.8 g/dl (12.0-16.0); LYMPHOCYTES # 2.4 10^3/ul (0.8-2.9); MEAN CORPUSCULAR HEMOGLOBIN 33.5 pg (29.0-33.0); MEAN CORPUSCULAR HGB CONC 35.6 g/dl (32.0-37.0); MEAN CORPUSCULAR VOLUME 93.9 fl (82.0-101.0); MEAN PLATELET VOLUME 10.4 fl (7.4-10.4); MONOCYTE # 1.2 10^3/ul (0.3-0.9); MONOCYTES % 8.6 % (0.0-11.0); NEUTROPHIL # 10.3 10^3/ul (1.6-7.5); NEUTROPHILS % 72.4 % (39.0-77.0); PLATELET COUNT 94 10^3/UL (140-415); RED BLOOD COUNT 2.63 10^6/ul (4.20-5.40); RED CELL DISTRIBUTION WIDTH 15.6 % (11.5-14.5)
[2018-06-08 06:27] LABS: WHITE BLOOD COUNT 14.3 10^3/ul (4.8-10.8)
[2018-06-08 06:44] LABS: POSITIVE DIFF @See below
[2018-06-08 07:01] LABS: ANION GAP 16 (5-13); BLOOD UREA NITROGEN 53 mg/dl (7-20); CALCIUM 9.1 mg/dl (8.4-10.2); CARBON DIOXIDE 17 mmol/L (21-31); CHLORIDE 105 mmol/L (97-110); CREATININE 3.31 mg/dl (0.44-1.00); Estimated GFR 14 mL/min (>60); GLUCOSE 102 mg/dl (70-220); MAGNESIUM 1.7 mg/dl (1.7-2.5); PHOSPHORUS 4.7 mg/dl (2.5-4.9); POTASSIUM 3.2 mmol/L (3.5-5.1); SODIUM 138 mmol/L (135-144)
[2018-06-08] MEDS: POTASSIUM CHLORIDE (SR) 20 MEQ TAB PO (07:40)
[2018-06-08] MEDS: AMIODARONE 200 MG TAB PO (09:05)
[2018-06-08] MEDS: SUCRALFATE (100 MG/ML) 10ML CUP PO ×4 (09:05→21:59)
[2018-06-08] MEDS: LACTULOSE 30ML CUP PO (09:05)
[2018-06-08] MEDS: OCTREOTIDE 50 MCG INJ SC ×3 (09:06→21:59)
[2018-06-08] MEDS: MIDODRINE 5 MG TAB PO ×3 (10:55→17:00)
[2018-06-08] MEDS: NYSTATIN SUSP 5 ML CUP PO ×4 (10:55→21:07)
[2018-06-08] MEDS: ERTAPENEM SODIUM 0.5 GM in SOD CHLORIDE 0.9% 100 ML IVPB (14:39)
[2018-06-09] MEDS: LANSOPRAZOLE 30 MG CAP PO (05:28)
[2018-06-09 07:45] LABS: ADD MAN DIFF? NO
[2018-06-09 07:53] LABS: WHITE BLOOD COUNT 17.3 10^3/ul (4.8-10.8)
[2018-06-09 07:53] LABS: HEMATOCRIT 22.2 % (37.0-47.0); HEMOGLOBIN 8.2 g/dl (12.0-16.0); MEAN CORPUSCULAR HEMOGLOBIN 34.9 pg (29.0-33.0); MEAN CORPUSCULAR HGB CONC 36.9 g/dl (32.0-37.0); MEAN CORPUSCULAR VOLUME 94.5 fl (82.0-101.0); MEAN PLATELET VOLUME 12.2 fl (7.4-10.4); NUCLEATED RED BLOOD CELLS% 0.1 /100WBC (0.0-0.0); RED BLOOD COUNT 2.35 10^6/ul (4.20-5.40); RED CELL DISTRIBUTION WIDTH 16.6 % (11.5-14.5)
[2018-06-09 08:11] LABS: PLATELET COUNT 213 10^3/UL (140-415); POSITIVE DIFF @See below
[2018-06-09] MEDS: SUCRALFATE (100 MG/ML) 10ML CUP PO ×4 (09:04→21:55)
[2018-06-09] MEDS: ALBUMIN HUMAN 25% 100 ML IV (09:04)
[2018-06-09] MEDS: NYSTATIN SUSP 5 ML CUP PO ×4 (09:04→21:55)
[2018-06-09] MEDS: LACTULOSE 30ML CUP PO (09:04)
[2018-06-09] MEDS: AMIODARONE 200 MG TAB PO (09:05)
[2018-06-09] MEDS: MIDODRINE 5 MG TAB PO ×3 (09:06→17:43)
[2018-06-09 12:06] LABS: ANION GAP 10 (5-13); BLOOD UREA NITROGEN 56 mg/dl (7-20); CARBON DIOXIDE 17 mmol/L (21-31); CHLORIDE 108 mmol/L (97-110); CREATININE 3.19 mg/dl (0.44-1.00); Estimated GFR 15 mL/min (>60); GLUCOSE 102 mg/dl (70-220); MAGNESIUM 1.7 mg/dl (1.7-2.5); PHOSPHORUS 5.7 mg/dl (2.5-4.9); POTASSIUM 5.4 mmol/L (3.5-5.1); SODIUM 135 mmol/L (135-144)
[2018-06-09] MEDS: OCTREOTIDE 50 MCG INJ SC ×2 (12:41→13:00)
[2018-06-09] MEDS: ERTAPENEM SODIUM 0.5 GM in SOD CHLORIDE 0.9% 100 ML IVPB (12:49)
[2018-06-09] MEDS: HYDROmorphONE 2 MG TAB PO (14:00)
[2018-06-09] MEDS: OCTREOTIDE 100 MCG INJ SC (23:12)
[2018-06-10] MEDS: LANSOPRAZOLE 30 MG CAP PO (06:11)
[2018-06-10] MEDS: SUCRALFATE (100 MG/ML) 10ML CUP PO ×4 (06:11→20:30)
[2018-06-10 06:21] LABS: ADD MAN DIFF? NO
[2018-06-10 06:27] LABS: BASOPHILS % 0.2 % (0.0-2.0); EOSINOPHILS # 0.2 10^3/ul (0.0-0.5); HEMATOCRIT 21.3 % (37.0-47.0); HEMOGLOBIN 7.7 g/dl (12.0-16.0); LYMPHOCYTES # 2.8 10^3/ul (0.8-2.9); LYMPHOCYTES % 16.6 % (15.0-51.0); MEAN CORPUSCULAR HEMOGLOBIN 34.7 pg (29.0-33.0); MEAN CORPUSCULAR HGB CONC 36.2 g/dl (32.0-37.0); MEAN CORPUSCULAR VOLUME 95.9 fl (82.0-101.0); MONOCYTE # 1.3 10^3/ul (0.3-0.9); MONOCYTES % 7.7 % (0.0-11.0); NEUTROPHIL # 12.2 10^3/ul (1.6-7.5); NEUTROPHILS % 73.4 % (39.0-77.0); PLATELET COUNT 115 10^3/UL (140-415); RED BLOOD COUNT 2.22 10^6/ul (4.20-5.40)
[2018-06-10 06:27] LABS: WHITE BLOOD COUNT 16.6 10^3/ul (4.8-10.8)
[2018-06-10 06:59] LABS: ANION GAP 12 (5-13); BLOOD UREA NITROGEN 57 mg/dl (7-20); CALCIUM 9.2 mg/dl (8.4-10.2); CARBON DIOXIDE 18 mmol/L (21-31); CHLORIDE 107 mmol/L (97-110); CREATININE 3.31 mg/dl (0.44-1.00); Estimated GFR 14 mL/min (>60); GLUCOSE 123 mg/dl (70-220); MAGNESIUM 1.7 mg/dl (1.7-2.5); PHOSPHORUS 4.8 mg/dl (2.5-4.9); POTASSIUM 3.5 mmol/L (3.5-5.1); SODIUM 137 mmol/L (135-144)
[2018-06-10 07:10] LABS: VANCOMYCIN,RANDOM 16.9 ug/ml
[2018-06-10] MEDS: MIDODRINE 5 MG TAB PO ×3 (09:00→16:45)
[2018-06-10] MEDS: NYSTATIN SUSP 5 ML CUP PO ×4 (10:48→20:29)
[2018-06-10] MEDS: OCTREOTIDE 100 MCG INJ SC ×3 (10:50→21:32)
[2018-06-10] MEDS: LACTULOSE 30ML CUP PO (10:51)
[2018-06-10] MEDS: AMIODARONE 200 MG TAB PO (10:51)
[2018-06-10] MEDS: ONDANSETRON 4 MG INJ IV (11:10)
[2018-06-10] MEDS: ERTAPENEM SODIUM 0.5 GM in SOD CHLORIDE 0.9% 100 ML IVPB (13:21)
[2018-06-10] MEDS: VANCOMYCIN 750 MG in SOD CHLORIDE 0.9% 150 ML IVPB (13:49)
[2018-06-10] MEDS ORDERED: ONDANSETRON 4 MG INJ IV (15:00)
[2018-06-10] MEDS: TRIMETHOBENZAMIDE 100 MG/ML VIAL IM (15:20)
[2018-06-10] MEDS: HYDROmorphONE 1 MG/ML SYG IV (16:27)
[2018-06-10] MEDS: ONDANSETRON INJ 8 MG in SOD CHLORIDE 0.9% 50 ML IV (16:46)
[2018-06-11] MEDS: HYDROmorphONE 1 MG/ML SYG IV ×3 (02:40→23:14)
[2018-06-11] MEDS: LANSOPRAZOLE 30 MG CAP PO (05:18)
[2018-06-11] MEDS: SUCRALFATE (100 MG/ML) 10ML CUP PO ×4 (06:00→20:53)
[2018-06-11] MEDS: ALBUMIN HUMAN 25% 100 ML IV (08:11)
[2018-06-11 08:20] LABS: ADD MAN DIFF? NO
[2018-06-11 08:27] LABS: BASOPHIL # 0.1 10^3/ul (0.0-0.1); BASOPHILS % 0.3 % (0.0-2.0); EOSINOPHILS # 0.2 10^3/ul (0.0-0.5); EOSINOPHILS % 1.1 % (0.0-7.0); HEMATOCRIT 23.3 % (37.0-47.0); HEMOGLOBIN 8.3 g/dl (12.0-16.0); LYMPHOCYTES % 15.8 % (15.0-51.0); MEAN CORPUSCULAR HGB CONC 35.6 g/dl (32.0-37.0); MEAN CORPUSCULAR VOLUME 95.5 fl (82.0-101.0); MEAN PLATELET VOLUME 11.4 fl (7.4-10.4); MONOCYTE # 1.5 10^3/ul (0.3-0.9); MONOCYTES % 7.9 % (0.0-11.0); NEUTROPHILS % 73.8 % (39.0-77.0); PLATELET COUNT 108 10^3/UL (140-415); RED BLOOD COUNT 2.44 10^6/ul (4.20-5.40); RED CELL DISTRIBUTION WIDTH 16.9 % (11.5-14.5)
[2018-06-11 08:27] LABS: WHITE BLOOD COUNT 18.9 10^3/ul (4.8-10.8)
[2018-06-11 08:41] LABS: POSITIVE DIFF @See below
[2018-06-11] MEDS: OCTREOTIDE 100 MCG INJ SC ×3 (08:55→20:53)
[2018-06-11] MEDS: MIDODRINE 5 MG TAB PO ×3 (08:56→17:00)
[2018-06-11] MEDS: AMIODARONE 200 MG TAB PO (08:56)
[2018-06-11] MEDS: LACTULOSE 30ML CUP PO (08:56)
[2018-06-11] MEDS: NYSTATIN SUSP 5 ML CUP PO ×4 (08:56→20:53)
[2018-06-11 09:00] LABS: ALANINE AMINOTRANSFERASE 23 IU/L (13-69); ALBUMIN 3.5 g/dl (3.3-4.9); ALBUMIN/GLOBULIN RATIO 1.06; ALKALINE PHOSPHATASE 212 IU/L (42-121); ANION GAP 17 (5-13); ASPARTATE AMINO TRANSFERASE 66 IU/L (15-46); BILIRUBIN,INDIRECT 3.3 mg/dl (0-1.1); BILIRUBIN,TOTAL 8.6 mg/dl (0.2-1.3); BLOOD UREA NITROGEN 56 mg/dl (7-20); CALCIUM 9.7 mg/dl (8.4-10.2); CARBON DIOXIDE 16 mmol/L (21-31); CHLORIDE 106 mmol/L (97-110); CREATININE 3.62 mg/dl (0.44-1.00); Estimated GFR 13 mL/min (>60); GLUCOSE 101 mg/dl (70-220); POTASSIUM 3.7 mmol/L (3.5-5.1); SODIUM 139 mmol/L (135-144); TOTAL PROTEIN 6.8 g/dl (6.1-8.1)
[2018-06-11] MEDS: TRIMETHOBENZAMIDE 100 MG/ML VIAL IM (09:11)
[2018-06-11 09:39] LABS: BILIRUBIN,INDIRECT 3.1 mg/dl (0-1.1); BILIRUBIN,TOTAL 8.2 mg/dl (0.2-1.3)
[2018-06-11] MEDS: ONDANSETRON INJ 8 MG in SOD CHLORIDE 0.9% 50 ML IV (13:07)
[2018-06-11] MEDS: ERTAPENEM SODIUM 0.5 GM in SOD CHLORIDE 0.9% 100 ML IVPB (13:58)
[2018-06-12] MEDS: SUCRALFATE (100 MG/ML) 10ML CUP PO ×3 (06:49→13:13)
[2018-06-12] MEDS: LANSOPRAZOLE 30 MG CAP PO (06:49)
[2018-06-12] MEDS: HYDROmorphONE 1 MG/ML SYG IV (07:01)
[2018-06-12] MEDS: AMIODARONE 200 MG TAB PO (09:05)
[2018-06-12] MEDS: ALBUMIN HUMAN 25% 50 ML IV (09:07)
[2018-06-12] MEDS: NYSTATIN SUSP 5 ML CUP PO ×2 (09:07→13:13)
[2018-06-12] MEDS: LACTULOSE 30ML CUP PO (09:07)
[2018-06-12 09:08] LABS: ADD MAN DIFF? NO
[2018-06-12] MEDS: OCTREOTIDE 100 MCG INJ SC ×2 (09:08→13:13)
[2018-06-12 09:15] LABS: BASOPHILS % 0.2 % (0.0-2.0); EOSINOPHILS # 0.2 10^3/ul (0.0-0.5); EOSINOPHILS % 1.2 % (0.0-7.0); HEMATOCRIT 21.6 % (37.0-47.0); HEMOGLOBIN 7.7 g/dl (12.0-16.0); LYMPHOCYTES # 2.7 10^3/ul (0.8-2.9); MEAN CORPUSCULAR HEMOGLOBIN 34.2 pg (29.0-33.0); MEAN CORPUSCULAR HGB CONC 35.6 g/dl (32.0-37.0); MONOCYTE # 1.3 10^3/ul (0.3-0.9); MONOCYTES % 7.6 % (0.0-11.0); NEUTROPHIL # 13.3 10^3/ul (1.6-7.5); NEUTROPHILS % 74.9 % (39.0-77.0); PLATELET COUNT 110 10^3/UL (140-415); RED BLOOD COUNT 2.25 10^6/ul (4.20-5.40); RED CELL DISTRIBUTION WIDTH 16.5 % (11.5-14.5)
[2018-06-12 09:15] LABS: WHITE BLOOD COUNT 17.7 10^3/ul (4.8-10.8)
[2018-06-12 09:46] LABS: ANION GAP 17 (5-13); BLOOD UREA NITROGEN 56 mg/dl (7-20); CALCIUM 9.4 mg/dl (8.4-10.2); CARBON DIOXIDE 17 mmol/L (21-31); CHLORIDE 104 mmol/L (97-110); CREATININE 3.68 mg/dl (0.44-1.00); Estimated GFR 13 mL/min (>60); GLUCOSE 101 mg/dl (70-220); MAGNESIUM 1.7 mg/dl (1.7-2.5); PHOSPHORUS 4.6 mg/dl (2.5-4.9); POTASSIUM 3.2 mmol/L (3.5-5.1); SODIUM 138 mmol/L (135-144)
[2018-06-12] MEDS: MIDODRINE 5 MG TAB PO ×2 (10:30→13:13)
[2018-06-12] MEDS: ERTAPENEM SODIUM 0.5 GM in SOD CHLORIDE 0.9% 100 ML IVPB (13:14)
[2018-06-12] MEDS ORDERED: ONDANSETRON 4 MG INJ IV (16:00)
[2018-06-12] MEDS ORDERED: ATROPINE 1% 5 ML OPH SL (16:00)
[2018-06-12] MEDS ORDERED: DIMETHICONE STICK TOP (16:00)
[2018-06-12] MEDS ORDERED: ARTIFICIAL TEARS 15 ML OPH BOTH EYES (16:00)
[2018-06-12] MEDS ORDERED: LORAZEPAM 2 MG INJ IV (16:00)
[2018-06-12] MEDS: morphine (DRIP) 100 MG/100 ML 100 ML IV (18:15)
== END 2018-06-13 13:00 | disposition expired | DRG 432 ==
LOC: TEL 05-31 10:46 → 5EC 06-08 01:30 → E/R 22:29 → TEL 05-29 05:03
PROC: 0W9G3ZZ Drainage of Peritoneal Cavity, Percutaneous Approach (ICD-10-PCS; principal; 2018-05-29)
PROC: 30233N1 Transfusion of Nonautologous Red Blood Cells into Peripheral Vein, Percutaneous Approach (ICD-10-PCS; 2018-05-30)
PROC: 3E0234Z Introduction of Serum, Toxoid and Vaccine into Muscle, Percutaneous Approach (ICD-10-PCS; 2018-05-30)
DX: K70.31 Alcoholic cirrhosis of liver with ascites (principal); J18.9 Pneumonia, unspecified organism; K76.7 Hepatorenal syndrome; N17.9 Acute kidney failure, unspecified; N39.0 Urinary tract infection, site not specified; D61.818 Other pancytopenia; E87.2 Acidosis; D68.9 Coagulation defect, unspecified; I85.10 Secondary esophageal varices without bleeding; B37.0 Candidal stomatitis; K76.6 Portal hypertension; Z51.5 Encounter for palliative care; Z66 Do not resuscitate; K72.90 Hepatic failure, unspecified without coma; I48.0 Paroxysmal atrial fibrillation; K80.20 Calculus of gallbladder without cholecystitis without obstruction; I12.9 Hypertensive chronic kidney disease with stage 1 through stage 4 chronic kidney disease, or unspecified chronic kidney disease; N18.9 Chronic kidney disease, unspecified; I95.9 Hypotension, unspecified; R13.10 Dysphagia, unspecified; D63.8 Anemia in other chronic diseases classified elsewhere; B96.20 Unspecified Escherichia coli [E. coli] as the cause of diseases classified elsewhere; Z16.12 Extended spectrum beta lactamase (ESBL) resistance; K29.70 Gastritis, unspecified, without bleeding; E83.42 Hypomagnesemia; E87.6 Hypokalemia; Z23 Encounter for immunization; Z86.73 Personal history of transient ischemic attack (TIA), and cerebral infarction without residual deficits
CPT/HCPCS: 36415; 36430; 71045; 74176; 76705; 76775; 80048; 80053; 80076; 80202; 80307; 81001; 81003; 82043; 82247; 82248; 83036; 83605; 83615; 83690; 83735; 84100; 84155; 84157; 84300; 84436; 84479; 85014; 85018; 85025; 85610; 85730; 86850; 86900; 86901; 86920; 87040; 87070; 87086; 87102; 87116; 88104; 88305; 89051; 90686; 96361; 96374; 96375; 97110; 97161; 99285-25